=== PATIENT | female | born 1950 | race Caucasian/White ===

== ENCOUNTER 2016-08-07 10:24 | Inpatient (IN) | payer MEDICARE, MEDICAID ==
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
[2016-08-07 11:45] LABS: Urine Bacteria Absent (Absent); Urine Bilirubin Negative (Negative); Urine Glucose Negative (Negative); Urine Nitrite Negative (Negative)
[2016-08-07 11:51] LABS: Hematocrit 42 % (35-47); Hemoglobin 13.7 g/dl (12.0-16.0); Mean Corpuscular HGB Conc 33 g/dl (31-36); Mean Corpuscular Hemoglobin 30 pg (27-31); Mean Corpuscular Volume 92 fL (80-97); Mean Platelet Volume 7 um3 (7.4-10.4); Red Blood Count 4.51 10^6/ul (4.0-5.4); Red Cell Distribution Width 14 % (10.5-15); White Blood Count 5.2 10^3/ul (3.5-10.8)
[2016-08-07 11:56] LABS: Benzodiazepine Urine Screen None Detected (None Detect)
[2016-08-07 12:03] LABS: ALT 13 U/L (7-52); AST 16 U/L (13-39); Albumin 4.1 g/dL (3.2-5.2); Alkaline Phosphatase 65 U/L (34-104); Anion Gap 7 mmol/L (2-11); BUN/Creatinine Ratio 22.6 (8-20); Blood Urea Nitrogen 19 mg/dL (6-24); CO2 Carbon Dioxide 28 mmol/L (22-32); Calcium 9.7 mg/dL (8.6-10.3); Chloride 102 mmol/L (101-111); EGFR African American 87.5 (>60); Glucose 97 mg/dL (70-100); Potassium 3.9 mmol/L (3.5-5.0); Sodium 137 mmol/L (133-145); Total Protein 7.1 g/dL (6.4-8.9)
[2016-08-07 12:26] LABS: Acetaminophen < 15 mcg/mL; Alcohol < 10 mg/dL (<10); Salicylate < 2.50 mg/dL (<30)
[2016-08-07] MEDS ORDERED: LORazepam TAB(*) 1 MG PO ONE (12:29)
[2016-08-07 12:36] LABS: TSH (Thyroid Stimulating Horm) 0.89 mcIU/mL (0.34-5.60)
[2016-08-07] MEDS: Mirtazapine TAB* 15 MG PO SCH (21:17)
[2016-08-07] MEDS: LORazepam TAB(*) 0.5 MG PO PRN (21:17)
[2016-08-07] MEDS: Docusate CAP* 100 MG PO SCH (21:17)
[2016-08-07] MEDS: Topiramate TAB(*) 25 MG PO SCH (21:18)
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
[2016-08-08] MEDS: Levothyroxine TAB* 112 MCG TAB PO SCH (06:19)
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
[2016-08-08] MEDS: Lisinopril TAB* 5 MG PO SCH (09:24)
[2016-08-08] MEDS: Docusate CAP* 100 MG PO SCH ×2 (09:24→22:41)
[2016-08-08] MEDS: PARoxetine HCL TAB* 10 MG PO SCH (09:24)
[2016-08-08] MEDS: lamoTRIgine TAB(*) 100 MG PO SCH (09:24)
--- NOTE | 2016-08-08 11:07 | PN ---
Progress Note - Progress Note Note: S: 65 y.o. single white female with PTSD who presented to ER yesterday with agitation and behavioral disturbances in her halfway in [place], [place]. Patient has been working on moving into a [facility] in [place], [place] to be closer to family. She was accepted for transfer to the [facility], however, they are now informing us that today is a [facility] and they have insufficient staffing to take her until tomorrow (08/09). Patient has shown no evidence of agitation so far today, although she is child-like and poorly organized. O: patient clean, well groomed, child like vocabulary, calm and cooperative. Requesting transfer to [facility]. Denies SI or HI. A/P: PTSD: will move to ER-Flex space and await [facility] [place] [place] [facility] (08/09)
[2016-08-08] MEDS: Topiramate TAB(*) 25 MG PO SCH (22:41)
[2016-08-08] MEDS: Mirtazapine TAB* 15 MG PO SCH (22:41)
[2016-08-08] MEDS: LORazepam TAB(*) 0.5 MG PO PRN (22:41)
[2016-08-09] MEDS: Levothyroxine TAB* 112 MCG TAB PO SCH (09:56)
[2016-08-09] MEDS: Docusate CAP* 100 MG PO SCH ×2 (10:50→22:12)
[2016-08-09] MEDS: lamoTRIgine TAB(*) 100 MG PO SCH (10:50)
[2016-08-09] MEDS: Lisinopril TAB* 5 MG PO SCH (10:50)
[2016-08-09] MEDS: PARoxetine HCL TAB* 10 MG PO SCH (10:51)
--- NOTE | 2016-08-09 15:18 | PN ---
ED Flex Patient Progress Note Subjective: This is a 65 year-old F who is pending transfer to another psychiatric facility secondary to needing a different facility to be discharge to as her previous facility will not take her back. Pt offers no complaints at this time. She has been drinking and eating. She also stays she is sleeping okay. Objective: Vitals: Most recent vital signs documented below. General NAD, Alert and oriented x3. Heart: rrr at 70 bpm Lungs: CTA or with rales, rhonchi, wheezing Abdomen: normal active BS, nontender, soft Laboratory: Current laboratory results documented below. Assessment: agitation Plan: Pending psychiatric to transfer to a different facility, will follow up daily until transfer occurs. Vital Signs Temp Pulse Resp BP Pulse Ox 98.5 F 79 18 138/72 94 08/08/16 11:12 08/08/16 11:12 08/08/16 22:41 08/08/16 11:12 08/08/16 11:12 Lab Results - Entire Visit 08/07/16 08/07/16 08/07/16 11:39 11:39 10:50 WBC 5.2 RBC 4.51 Hgb 13.7 Hct 42 MCV 92 MCH 30 MCHC 33 RDW 14 Plt Count 223 MPV 7 L Neut % (Auto) 66.4 Lymph % (Auto) 25.5 [place] % (Auto) 6.6 Eos % (Auto) 1.0 Baso % (Auto) 0.5 Absolute Neuts (auto) 3.4 Absolute Lymphs (auto) 1.3 Absolute Monos (auto) 0.3 Absolute Eos (auto) 0.1 Absolute Basos (auto) 0 Absolute Nucleated RBC 0 Nucleated RBC % 0 Sodium 137 Potassium 3.9 Chloride 102 Carbon Dioxide 28 Anion Gap 7 BUN 19 Creatinine 0.84 Est GFR ( Amer) 87.5 Est GFR (Non-Af Amer) 68.0 BUN/Creatinine Ratio 22.6 H Glucose 97 Calcium 9.7 Total Bilirubin 0.50 AST 16 ALT 13 Alkaline Phosphatase 65 Total Protein 7.1 Albumin 4.1 Globulin 3.0 Albumin/Globulin Ratio 1.4 TSH 0.89 Urine Color Urine Appearance Urine pH Ur Specific [place] Urine Protein Urine Ketones Urine Blood Urine Nitrate Urine Bilirubin Urine Urobilinogen Ur Leukocyte Esterase Urine WBC (Auto) Urine RBC (Auto) Ur Squamous Epith Cells Ur Renal Epithelial Cell Urine Bacteria Urine Glucose Salicylates < 2.50 Urine Opiates Screen None detected Acetaminophen < 15 Ur Barbiturates Screen None detected Ur Phencyclidine Scrn None detected Ur Amphetamines Screen None detected U Benzodiazepines Scrn None detected Urine Cocaine Screen None detected U Cannabinoids Screen None detected Serum Alcohol < 10 08/07/16 10:30 WBC RBC Hgb Hct MCV MCH MCHC RDW Plt Count MPV Neut % (Auto) Lymph % (Auto) [place] % (Auto) Eos % (Auto) Baso % (Auto) Absolute Neuts (auto) Absolute Lymphs (auto) Absolute Monos (auto) Absolute Eos (auto) Absolute Basos (auto) Absolute Nucleated RBC Nucleated RBC % Sodium Potassium Chloride Carbon Dioxide Anion Gap BUN Creatinine Est GFR ( Amer) Est GFR (Non-Af Amer) BUN/Creatinine Ratio Glucose Calcium Total Bilirubin AST ALT Alkaline Phosphatase Total Protein Albumin Globulin Albumin/Globulin Ratio TSH Urine Color Yellow Urine Appearance Clear Urine pH 6.0 Ur Specific [place] 1.018 Urine Protein Negative Urine Ketones Negative Urine Blood Negative Urine Nitrate Negative Urine Bilirubin Negative Urine Urobilinogen Negative Ur Leukocyte Esterase 2+ H Urine WBC (Auto) 1+(6-10/hpf) H Urine RBC (Auto) Trace(0-2/hpf) Ur Squamous Epith Cells Present H Ur Renal Epithelial Cell Present H Urine Bacteria Absent Urine Glucose Negative Salicylates Urine Opiates Screen Acetaminophen Ur Barbiturates Screen Ur Phencyclidine Scrn Ur Amphetamines Screen U Benzodiazepines Scrn Urine Cocaine Screen U Cannabinoids Screen Serum Alcohol
--- NOTE | 2016-08-09 16:10 | PN ---
ED Flex Patient Progress Note Subjective: This is a 65 year-old F who is pending transfer to another psychiatric facility. Pt offers no complaints at this time. Objective: The patient is calm and cooperative. Assessment: Bipolar DO by hx Plan: Patient is a service-connected who awaits transfer to an accepting [facility]. Vital Signs Temp Pulse Resp BP Pulse Ox 98.5 F 79 18 138/72 94 08/08/16 11:12 08/08/16 11:12 08/08/16 22:41 08/08/16 11:12 08/08/16 11:12 Lab Results - Entire Visit 08/07/16 08/07/16 08/07/16 11:39 11:39 10:50 WBC 5.2 RBC 4.51 Hgb 13.7 Hct 42 MCV 92 MCH 30 MCHC 33 RDW 14 Plt Count 223 MPV 7 L Neut % (Auto) 66.4 Lymph % (Auto) 25.5 [place] % (Auto) 6.6 Eos % (Auto) 1.0 Baso % (Auto) 0.5 Absolute Neuts (auto) 3.4 Absolute Lymphs (auto) 1.3 Absolute Monos (auto) 0.3 Absolute Eos (auto) 0.1 Absolute Basos (auto) 0 Absolute Nucleated RBC 0 Nucleated RBC % 0 Sodium 137 Potassium 3.9 Chloride 102 Carbon Dioxide 28 Anion Gap 7 BUN 19 Creatinine 0.84 Est GFR ( Amer) 87.5 Est GFR (Non-Af Amer) 68.0 BUN/Creatinine Ratio 22.6 H Glucose 97 Calcium 9.7 Total Bilirubin 0.50 AST 16 ALT 13 Alkaline Phosphatase 65 Total Protein 7.1 Albumin 4.1 Globulin 3.0 Albumin/Globulin Ratio 1.4 TSH 0.89 Urine Color Urine Appearance Urine pH Ur Specific [place] Urine Protein Urine Ketones Urine Blood Urine Nitrate Urine Bilirubin Urine Urobilinogen Ur Leukocyte Esterase Urine WBC (Auto) Urine RBC (Auto) Ur Squamous Epith Cells Ur Renal Epithelial Cell Urine Bacteria Urine Glucose Salicylates < 2.50 Urine Opiates Screen None detected Acetaminophen < 15 Ur Barbiturates Screen None detected Ur Phencyclidine Scrn None detected Ur Amphetamines Screen None detected U Benzodiazepines Scrn None detected Urine Cocaine Screen None detected U Cannabinoids Screen None detected Serum Alcohol < 10 08/07/16 10:30 WBC RBC Hgb Hct MCV MCH MCHC RDW Plt Count MPV Neut % (Auto) Lymph % (Auto) [place] % (Auto) Eos % (Auto) Baso % (Auto) Absolute Neuts (auto) Absolute Lymphs (auto) Absolute Monos (auto) Absolute Eos (auto) Absolute Basos (auto) Absolute Nucleated RBC Nucleated RBC % Sodium Potassium Chloride Carbon Dioxide Anion Gap BUN Creatinine Est GFR ( Amer) Est GFR (Non-Af Amer) BUN/Creatinine Ratio Glucose Calcium Total Bilirubin AST ALT Alkaline Phosphatase Total Protein Albumin Globulin Albumin/Globulin Ratio TSH Urine Color Yellow Urine Appearance Clear Urine pH 6.0 Ur Specific [place] 1.018 Urine Protein Negative Urine Ketones Negative Urine Blood Negative Urine Nitrate Negative Urine Bilirubin Negative Urine Urobilinogen Negative Ur Leukocyte Esterase 2+ H Urine WBC (Auto) 1+(6-10/hpf) H Urine RBC (Auto) Trace(0-2/hpf) Ur Squamous Epith Cells Present H Ur Renal Epithelial Cell Present H Urine Bacteria Absent Urine Glucose Negative Salicylates Urine Opiates Screen Acetaminophen Ur Barbiturates Screen Ur Phencyclidine Scrn Ur Amphetamines Screen U Benzodiazepines Scrn Urine Cocaine Screen U Cannabinoids Screen Serum Alcohol
[2016-08-09] MEDS: Mirtazapine TAB* 15 MG PO SCH (22:12)
[2016-08-09] MEDS: Topiramate TAB(*) 25 MG PO SCH (22:12)
[2016-08-10] MEDS: Docusate CAP* 100 MG PO SCH ×2 (09:42→21:20)
[2016-08-10] MEDS: PARoxetine HCL TAB* 10 MG PO SCH (09:43)
[2016-08-10] MEDS: Lisinopril TAB* 5 MG PO SCH (09:43)
[2016-08-10] MEDS: Levothyroxine TAB* 112 MCG TAB PO SCH (09:55)
[2016-08-10] MEDS: lamoTRIgine TAB(*) 100 MG PO SCH (09:56)
--- NOTE | 2016-08-10 16:32 | PN ---
ED Flex Patient Progress Note Subjective: This is a 65 year-old F who is pending transfer to any of the available local/ regional [place] medical centers due to agitated behavior. She remains calm and cooperative and denies SI or HI. Objective: Calm and cooperative. Child-like. In behavioral control. Assessment: Bipolar DO, NOS Plan: Pending transfer to [place] but facilities in [facility] and [place] lack bed-space. Will re-evaluate tomorrow for continued need for hospitalization. Vital Signs Temp Pulse Resp BP Pulse Ox 98.4 F 80 16 108/61 95 08/10/16 08:57 08/10/16 08:57 08/10/16 08:57 08/10/16 08:57 08/10/16 08:57 Lab Results - Entire Visit 08/07/16 08/07/16 08/07/16 11:39 11:39 11:39 WBC 5.2 RBC 4.51 Hgb 13.7 Hct 42 MCV 92 MCH 30 MCHC 33 RDW 14 Plt Count 223 MPV 7 L Neut % (Auto) 66.4 Lymph % (Auto) 25.5 [place] % (Auto) 6.6 Eos % (Auto) 1.0 Baso % (Auto) 0.5 Absolute Neuts (auto) 3.4 Absolute Lymphs (auto) 1.3 Absolute Monos (auto) 0.3 Absolute Eos (auto) 0.1 Absolute Basos (auto) 0 Absolute Nucleated RBC 0 Nucleated RBC % 0 Sodium 137 Potassium 3.9 Chloride 102 Carbon Dioxide 28 Anion Gap 7 BUN 19 Creatinine 0.84 Est GFR ( Amer) 87.5 Est GFR (Non-Af Amer) 68.0 BUN/Creatinine Ratio 22.6 H Glucose 97 Calcium 9.7 Total Bilirubin 0.50 AST 16 ALT 13 Alkaline Phosphatase 65 Total Protein 7.1 Albumin 4.1 Globulin 3.0 Albumin/Globulin Ratio 1.4 TSH 0.89 Urine Color Urine Appearance Urine pH Ur Specific [place] Urine Protein Urine Ketones Urine Blood Urine Nitrate Urine Bilirubin Urine Urobilinogen Ur Leukocyte Esterase Urine WBC (Auto) Urine RBC (Auto) Ur Squamous Epith Cells Ur Renal Epithelial Cell Urine Bacteria Urine Glucose Salicylates < 2.50 Urine Opiates Screen Acetaminophen < 15 Ur Barbiturates Screen Lamotrigine 4.1 Ur Phencyclidine Scrn Ur Amphetamines Screen U Benzodiazepines Scrn Urine Cocaine Screen U Cannabinoids Screen Serum Alcohol < 10 01/01/17 01/01/17 10:50 10:30 WBC RBC Hgb Hct MCV MCH MCHC RDW Plt Count MPV Neut % (Auto) Lymph % (Auto) [place] % (Auto) Eos % (Auto) Baso % (Auto) Absolute Neuts (auto) Absolute Lymphs (auto) Absolute Monos (auto) Absolute Eos (auto) Absolute Basos (auto) Absolute Nucleated RBC Nucleated RBC % Sodium Potassium Chloride Carbon Dioxide Anion Gap BUN Creatinine Est GFR ( Amer) Est GFR (Non-Af Amer) BUN/Creatinine Ratio Glucose Calcium Total Bilirubin AST ALT Alkaline Phosphatase Total Protein Albumin Globulin Albumin/Globulin Ratio TSH Urine Color Yellow Urine Appearance Clear Urine pH 6.0 Ur Specific [place] 1.018 Urine Protein Negative Urine Ketones Negative Urine Blood Negative Urine Nitrate Negative Urine Bilirubin Negative Urine Urobilinogen Negative Ur Leukocyte Esterase 2+ H Urine WBC (Auto) 1+(6-10/hpf) H Urine RBC (Auto) Trace(0-2/hpf) Ur Squamous Epith Cells Present H Ur Renal Epithelial Cell Present H Urine Bacteria Absent Urine Glucose Negative Salicylates Urine Opiates Screen None detected Acetaminophen Ur Barbiturates Screen None detected Lamotrigine Ur Phencyclidine Scrn None detected Ur Amphetamines Screen None detected U Benzodiazepines Scrn None detected Urine Cocaine Screen None detected U Cannabinoids Screen None detected Serum Alcohol
--- NOTE | 2016-08-10 17:21 | PN ---
ED Flex Patient Progress Note Subjective: This is a 65 year-old F who is pending transfer [facility] secondary to [facility]. Pt offers no complaints at this time. She is calm and cooperative. Currently sitting and eating dinner. She states she slept well last night. Objective: Vitals: Most recent vital signs documented below. General NAD, Alert and oriented x3. Heart: rrr at 70 bpm Lungs: CTA or with rales, rhonchi, wheezing Abdomen: nontender, normoactive bowel sounds, soft Extremities: move all extremities Laboratory: Current laboratory results documented below. Assessment: agitation Plan: Pending psychiatric to find a [facility] to [facility], will follow up daily. Vital Signs Temp Pulse Resp BP Pulse Ox 98.4 F 80 16 108/61 95 08/10/16 08:57 08/10/16 08:57 08/10/16 08:57 08/10/16 08:57 08/10/16 08:57 Lab Results - Entire Visit 08/07/16 08/07/16 08/07/16 11:39 11:39 11:39 WBC 5.2 RBC 4.51 Hgb 13.7 Hct 42 MCV 92 MCH 30 MCHC 33 RDW 14 Plt Count 223 MPV 7 L Neut % (Auto) 66.4 Lymph % (Auto) 25.5 Summers % (Auto) 6.6 Eos % (Auto) 1.0 Baso % (Auto) 0.5 Absolute Neuts (auto) 3.4 Absolute Lymphs (auto) 1.3 Absolute Monos (auto) 0.3 Absolute Eos (auto) 0.1 Absolute Basos (auto) 0 Absolute Nucleated RBC 0 Nucleated RBC % 0 Sodium 137 Potassium 3.9 Chloride 102 Carbon Dioxide 28 Anion Gap 7 BUN 19 Creatinine 0.84 Est GFR ( Amer) 87.5 Est GFR (Non-Af Amer) 68.0 BUN/Creatinine Ratio 22.6 H Glucose 97 Calcium 9.7 Total Bilirubin 0.50 AST 16 ALT 13 Alkaline Phosphatase 65 Total Protein 7.1 Albumin 4.1 Globulin 3.0 Albumin/Globulin Ratio 1.4 TSH 0.89 Urine Color Urine Appearance Urine pH Ur Specific Montfort Urine Protein Urine Ketones Urine Blood Urine Nitrate Urine Bilirubin Urine Urobilinogen Ur Leukocyte Esterase Urine WBC (Auto) Urine RBC (Auto) Ur Squamous Epith Cells Ur Renal Epithelial Cell Urine Bacteria Urine Glucose Salicylates < 2.50 Urine Opiates Screen Acetaminophen < 15 Ur Barbiturates Screen Lamotrigine 4.1 Ur Phencyclidine Scrn Ur Amphetamines Screen U Benzodiazepines Scrn Urine Cocaine Screen U Cannabinoids Screen Serum Alcohol < 10 08/07/16 08/07/16 10:50 10:30 WBC RBC Hgb Hct MCV MCH MCHC RDW Plt Count MPV Neut % (Auto) Lymph % (Auto) Summers % (Auto) Eos % (Auto) Baso % (Auto) Absolute Neuts (auto) Absolute Lymphs (auto) Absolute Monos (auto) Absolute Eos (auto) Absolute Basos (auto) Absolute Nucleated RBC Nucleated RBC % Sodium Potassium Chloride Carbon Dioxide Anion Gap BUN Creatinine Est GFR ( Amer) Est GFR (Non-Af Amer) BUN/Creatinine Ratio Glucose Calcium Total Bilirubin AST ALT Alkaline Phosphatase Total Protein Albumin Globulin Albumin/Globulin Ratio TSH Urine Color Yellow Urine Appearance Clear Urine pH 6.0 Ur Specific Montfort 1.018 Urine Protein Negative Urine Ketones Negative Urine Blood Negative Urine Nitrate Negative Urine Bilirubin Negative Urine Urobilinogen Negative Ur Leukocyte Esterase 2+ H Urine WBC (Auto) 1+(6-10/hpf) H Urine RBC (Auto) Trace(0-2/hpf) Ur Squamous Epith Cells Present H Ur Renal Epithelial Cell Present H Urine Bacteria Absent Urine Glucose Negative Salicylates Urine Opiates Screen None detected Acetaminophen Ur Barbiturates Screen None detected Lamotrigine Ur Phencyclidine Scrn None detected Ur Amphetamines Screen None detected U Benzodiazepines Scrn None detected Urine Cocaine Screen None detected U Cannabinoids Screen None detected Serum Alcohol
[2016-08-10] MEDS: Mirtazapine TAB* 15 MG PO SCH (21:20)
[2016-08-10] MEDS: Topiramate TAB(*) 25 MG PO SCH (21:20)
--- NOTE | 2016-08-11 15:12 | PN ---
ED Flex Patient Progress Note Subjective: This is a 65 year-old F who is pending admission to [facility] secondary to agitation. Pt offers no complaints at this time. She has been eating and drinking okay. She states she took a nap today. Objective: Vitals: Most recent vital signs documented below. General NAD, Alert and oriented x3. Heart: rrr at 70 bpm Lungs: CTA or with rales, rhonchi, wheezing Abdomen: soft nontender, normoactive bowel sounds Laboratory: Current laboratory results documented below. Assessment: Agitation Bipolar Plan: Pending psychiatric to admit today. Disposition: Admit Condition: stable Vital Signs Temp Pulse Resp BP Pulse Ox 98.2 F 78 16 97/58 96 08/10/16 18:21 08/10/16 18:21 08/10/16 18:21 08/10/16 18:21 08/10/16 18:21 Lab Results - Entire Visit 08/07/16 08/07/16 08/07/16 11:39 11:39 11:39 WBC 5.2 RBC 4.51 Hgb 13.7 Hct 42 MCV 92 MCH 30 MCHC 33 RDW 14 Plt Count 223 MPV 7 L Neut % (Auto) 66.4 Lymph % (Auto) 25.5 Anderson % (Auto) 6.6 Eos % (Auto) 1.0 Baso % (Auto) 0.5 Absolute Neuts (auto) 3.4 Absolute Lymphs (auto) 1.3 Absolute Monos (auto) 0.3 Absolute Eos (auto) 0.1 Absolute Basos (auto) 0 Absolute Nucleated RBC 0 Nucleated RBC % 0 Sodium 137 Potassium 3.9 Chloride 102 Carbon Dioxide 28 Anion Gap 7 BUN 19 Creatinine 0.84 Est GFR ( Amer) 87.5 Est GFR (Non-Af Amer) 68.0 BUN/Creatinine Ratio 22.6 H Glucose 97 Calcium 9.7 Total Bilirubin 0.50 AST 16 ALT 13 Alkaline Phosphatase 65 Total Protein 7.1 Albumin 4.1 Globulin 3.0 Albumin/Globulin Ratio 1.4 TSH 0.89 Urine Color Urine Appearance Urine pH Ur Specific Falkner Urine Protein Urine Ketones Urine Blood Urine Nitrate Urine Bilirubin Urine Urobilinogen Ur Leukocyte Esterase Urine WBC (Auto) Urine RBC (Auto) Ur Squamous Epith Cells Ur Renal Epithelial Cell Urine Bacteria Urine Glucose Salicylates < 2.50 Urine Opiates Screen Acetaminophen < 15 Ur Barbiturates Screen Lamotrigine 4.1 Ur Phencyclidine Scrn Ur Amphetamines Screen U Benzodiazepines Scrn Urine Cocaine Screen U Cannabinoids Screen Serum Alcohol < 10 08/07/16 08/07/16 10:50 10:30 WBC RBC Hgb Hct MCV MCH MCHC RDW Plt Count MPV Neut % (Auto) Lymph % (Auto) Anderson % (Auto) Eos % (Auto) Baso % (Auto) Absolute Neuts (auto) Absolute Lymphs (auto) Absolute Monos (auto) Absolute Eos (auto) Absolute Basos (auto) Absolute Nucleated RBC Nucleated RBC % Sodium Potassium Chloride Carbon Dioxide Anion Gap BUN Creatinine Est GFR ( Amer) Est GFR (Non-Af Amer) BUN/Creatinine Ratio Glucose Calcium Total Bilirubin AST ALT Alkaline Phosphatase Total Protein Albumin Globulin Albumin/Globulin Ratio TSH Urine Color Yellow Urine Appearance Clear Urine pH 6.0 Ur Specific Falkner 1.018 Urine Protein Negative Urine Ketones Negative Urine Blood Negative Urine Nitrate Negative Urine Bilirubin Negative Urine Urobilinogen Negative Ur Leukocyte Esterase 2+ H Urine WBC (Auto) 1+(6-10/hpf) H Urine RBC (Auto) Trace(0-2/hpf) Ur Squamous Epith Cells Present H Ur Renal Epithelial Cell Present H Urine Bacteria Absent Urine Glucose Negative Salicylates Urine Opiates Screen None detected Acetaminophen Ur Barbiturates Screen None detected Lamotrigine Ur Phencyclidine Scrn None detected Ur Amphetamines Screen None detected U Benzodiazepines Scrn None detected Urine Cocaine Screen None detected U Cannabinoids Screen None detected Serum Alcohol
[2016-08-11] MEDS: Levothyroxine TAB* 112 MCG TAB PO SCH (17:04)
[2016-08-11] MEDS: Docusate CAP* 100 MG PO SCH ×2 (17:09→20:56)
[2016-08-11] MEDS: Lisinopril TAB* 5 MG PO SCH (17:10)
[2016-08-11] MEDS: lamoTRIgine TAB(*) 100 MG PO SCH (17:10)
[2016-08-11] MEDS: PARoxetine HCL TAB* 10 MG PO SCH (17:10)
[2016-08-11] MEDS: Mirtazapine TAB* 15 MG PO SCH (20:55)
[2016-08-11] MEDS: Topiramate TAB(*) 25 MG PO SCH (20:55)
[2016-08-12] MEDS: Levothyroxine TAB* 112 MCG TAB PO SCH ×2 (06:14→08:54)
[2016-08-12] MEDS: Docusate CAP* 100 MG PO SCH ×2 (08:54→21:28)
[2016-08-12] MEDS: Lisinopril TAB* 5 MG PO SCH (08:55)
[2016-08-12] MEDS: lamoTRIgine TAB(*) 100 MG PO SCH (08:55)
[2016-08-12] MEDS: PARoxetine HCL TAB* 10 MG PO SCH (08:56)
[2016-08-12] MEDS: Vitamin THERAPEUTIC TAB PO SCH (08:56)
[2016-08-12] MEDS ORDERED: Ibuprofen TAB* 600 MG PO PRN (16:43)
[2016-08-12] MEDS ORDERED: Triamcinolone 0.025% OINT * 15 GM TUBE TOPICAL PRN (16:43)
[2016-08-12] MEDS ORDERED: Nicotine Inhaler* 10 MG AMP INH PRN (16:46)
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
[2016-08-12] MEDS: Topiramate TAB(*) 25 MG PO SCH (21:28)
[2016-08-12] MEDS: Calcium/Vitamin D TAB 250/125* TAB PO SCH (21:28)
[2016-08-12] MEDS: Mirtazapine TAB* 15 MG PO SCH (21:29)
[2016-08-13] MEDS: Vitamin THERAPEUTIC TAB PO SCH (08:34)
[2016-08-13] MEDS: Lisinopril TAB* 5 MG PO SCH (08:34)
[2016-08-13] MEDS: PARoxetine HCL TAB* 10 MG PO SCH (08:35)
[2016-08-13] MEDS: Folic Acid TAB* 1 MG PO SCH (08:35)
[2016-08-13] MEDS: Docusate CAP* 100 MG PO SCH ×2 (08:35→21:19)
[2016-08-13] MEDS: Calcium/Vitamin D TAB 250/125* TAB PO SCH ×2 (08:35→21:19)
[2016-08-13] MEDS: lamoTRIgine TAB(*) 100 MG PO SCH (08:35)
[2016-08-13] MEDS: Levothyroxine TAB* 112 MCG TAB PO SCH (08:36)
--- NOTE | 2016-08-13 14:45 | PN ---
Subjective - Subjective Service Type: 40000 Hosp care 15 min low complexity Subjective: I reviewed Dr Lindsay's H&P and staff notes since Monday afternoon. She expressed a desire to move closer to [place]. She slept 7+ hrs last night. Pt found in bed. She attempted to briefly summarize reasons for hospitalization (essentially mentioning conflict with neighbors and calling the Crisis Line repeatedly). She is unaware of any specific treatment goals for this hospitalization other than transferring her to [facility]. Mood is "up and down " and notes mild depression since after lunch. She denies any anxiety. She notes constipation but denies other physical complaints. She slept "okay" last night. She reports stable appetite. She denies any medication side effects. She denies SI or HI. Objective - Appearance Appearance: Other - uses cane. Grooming: Fairly Well Kept - Behavior Psychomotor Activities: Abnormal-Increased - exaggerated facial expressions and gesticulations. Child-like mannerisms. Exaggerated tongue movements. Often covers face with hands. Exhibits Abnormal Movement: Yes - Attitude and Relatedness Attitude and Relatedness: Cooperative Eye Contact: Fair - Speech Quality: Pressured Latencies: Normal Quantity: Appropriate - Mood Patient's Decription of Mood: "up and down" - Affect Observed Affect: Non-labile Affect Consistent with: Euthymia - Thought Process Patient's Thought Process: Coherent, Impoverished Thought Content: No Passive Wish, No Suicidal Planning, No Homicidal Ideation, No Paranoid Ideation - Sensorium Experiencing Hallucinations: No, Sensorium is Clear - Level of Consciousness Level of Consciousness: Alert - Impulse Control Impulse Control: Intact - Insight and Judgement Insight and Judgement: Fair - Additional Observations Comments: Vital Signs 08/13/16 07:52 Temperature 98.4 F Pulse Rate 71 Respiratory 16 Rate Blood Pressure 120/69 (mmHg) O2 Sat by Pulse 98 Oximetry Assessment - Assessment Merits Inpatient Hospitalization: For Stabilization, Diagnosis Determination, To Initiate Treatment, For Ongoing Evaluation, Consolidate Improvements, For Discharge Planning, Pending Safe DC Plan Inpatient DSM-IV Dx: Mood D/o NOS Clinical Impression: 65yo female [place] with a hx of bipolar disorder and past psychiatric hospitalizations admitted for mood lability escalating towards violent threats. Plan - Plan Treatment Plan: Name: HALEIGH SANCHEZ Birthdate: 1950 [id number] - to continue current medication regime. - to get collateral from Simeon Zapata ([employer]) and psychiatrist at the [facility] Medications: Current Medications Acetaminophen (Tylenol Tab*) 650 mg PO Q4H PRN PRN Reason: PAIN or TEMP > 101 F Calcium/Vitamin D (Oscal D Tab 250/125*) 2 tab PO BID [facility] Last Admin: 08/13/16 08:35 Dose: 2 tab Docusate Sodium (Colace Cap*) 100 mg PO BID [facility] Last Admin: 08/13/16 08:35 Dose: 100 mg Folic Acid (Folvite Tab*) 1 mg PO DAILY [facility] Last Admin: 08/13/16 08:35 Dose: 1 mg Ibuprofen (Motrin Tab*) 600 mg PO Q6H PRN PRN Reason: PAIN Lamotrigine (Lamictal Tab(*)) 300 mg PO DAILY [facility] Last Admin: 08/13/16 08:35 Dose: 300 mg Levothyroxine Sodium (Synthroid Tab*) 112 mcg PO DAILY@0600 [facility] Last Admin: 08/13/16 08:36 Dose: 112 mcg Lisinopril (Prinivil Tab*) 5 mg PO DAILY [facility] Last Admin: 08/13/16 08:34 Dose: 5 mg Lorazepam (Ativan Tab(*)) 0.5 mg PO BID PRN PRN Reason: ANXIETY Last Admin: 08/08/16 22:41 Dose: 0.5 mg Mirtazapine (Remeron Tab*) 30 mg PO BEDTIME [facility] Last Admin: 08/12/16 21:29 Dose: 30 mg Multivitamins (Theragran Tab*) 1 tab PO DAILY [facility] Last Admin: 08/13/16 08:34 Dose: 1 tab Nicotine (Nicotine Inhaler*) 10 mg INH Q2H PRN PRN Reason: CRAVING Paroxetine HCl (Paxil Tab*) 10 mg PO DAILY [facility] Last Admin: 08/13/16 08:35 Dose: 10 mg Psyllium Hydrophilic Mucilloid (Metamucil Porter*) 1 pkt PO DAILY PRN PRN Reason: CONSTIPATION Topiramate (Topamax(*)) 25 mg PO BEDTIME [facility] Last Admin: 08/12/16 21:28 Dose: 25 mg Triamcinolone Acetonide (Triamcinolone 0.025% Oint *) 1 applic TOPICAL DAILY PRN PRN Reason: ITCHING
[2016-08-13] MEDS: Mirtazapine TAB* 15 MG PO SCH (21:19)
[2016-08-13] MEDS: Topiramate TAB(*) 25 MG PO SCH (21:20)
[2016-08-14] MEDS: Levothyroxine TAB* 112 MCG TAB PO SCH (06:30)
[2016-08-14] MEDS: Psyllium PAK PO PRN (09:10)
[2016-08-14] MEDS: Docusate CAP* 100 MG PO SCH ×2 (09:10→21:22)
[2016-08-14] MEDS: Vitamin THERAPEUTIC TAB PO SCH (09:10)
[2016-08-14] MEDS: lamoTRIgine TAB(*) 100 MG PO SCH (09:10)
[2016-08-14] MEDS: Lisinopril TAB* 5 MG PO SCH (09:11)
[2016-08-14] MEDS: PARoxetine HCL TAB* 10 MG PO SCH (09:11)
[2016-08-14] MEDS: Folic Acid TAB* 1 MG PO SCH (09:11)
[2016-08-14] MEDS: Calcium/Vitamin D TAB 250/125* TAB PO SCH (09:11)
[2016-08-14] MEDS: Mirtazapine TAB* 15 MG PO SCH (21:21)
[2016-08-14] MEDS: Topiramate TAB(*) 25 MG PO SCH (21:21)
[2016-08-15] MEDS: Calcium/Vitamin D TAB 250/125* TAB PO SCH ×3 (03:40→21:31)
[2016-08-15] MEDS: Levothyroxine TAB* 112 MCG TAB PO SCH (06:06)
[2016-08-15] MEDS: Docusate CAP* 100 MG PO SCH ×2 (08:44→21:31)
[2016-08-15] MEDS: lamoTRIgine TAB(*) 100 MG PO SCH (08:44)
[2016-08-15] MEDS: Folic Acid TAB* 1 MG PO SCH (08:44)
[2016-08-15] MEDS: Lisinopril TAB* 5 MG PO SCH (08:44)
[2016-08-15] MEDS: Vitamin THERAPEUTIC TAB PO SCH (08:45)
[2016-08-15] MEDS: Psyllium PAK PO PRN (08:45)
[2016-08-15] MEDS: PARoxetine HCL TAB* 10 MG PO SCH (08:45)
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
[2016-08-15] MEDS: Mirtazapine TAB* 15 MG PO SCH (21:31)
[2016-08-15] MEDS: Topiramate TAB(*) 25 MG PO SCH (21:32)
[2016-08-16] MEDS: Levothyroxine TAB* 112 MCG TAB PO SCH (05:09)
[2016-08-16] MEDS: Calcium/Vitamin D TAB 250/125* TAB PO SCH ×2 (09:04→20:41)
[2016-08-16] MEDS: lamoTRIgine TAB(*) 100 MG PO SCH (09:04)
[2016-08-16] MEDS: Docusate CAP* 100 MG PO SCH ×2 (09:05→20:41)
[2016-08-16] MEDS: Lisinopril TAB* 5 MG PO SCH (09:05)
[2016-08-16] MEDS: Vitamin THERAPEUTIC TAB PO SCH (09:05)
[2016-08-16] MEDS: Folic Acid TAB* 1 MG PO SCH (09:05)
[2016-08-16] MEDS: PARoxetine HCL TAB* 10 MG PO SCH (09:05)
--- NOTE | 2016-08-16 13:44 | PN ---
MHU: Group Therapy Note - Service Type Service Type: [id number] Group Psychotherapy - Cognitive Behavioral Group Therapy ( CBT):Patient was attentive and participatory in CBT programming this morning, and remained in good behavioral control. Patient expressed positive insights regarding relevant treatment interventions and goals.
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
[2016-08-16] MEDS: Mirtazapine TAB* 15 MG PO SCH (20:41)
[2016-08-16] MEDS: Topiramate TAB(*) 25 MG PO SCH (20:41)
[2016-08-17] MEDS: Levothyroxine TAB* 112 MCG TAB PO SCH (06:03)
[2016-08-17] MEDS: Calcium/Vitamin D TAB 250/125* TAB PO SCH ×2 (08:25→21:18)
[2016-08-17] MEDS: Docusate CAP* 100 MG PO SCH ×2 (08:25→21:18)
[2016-08-17] MEDS: lamoTRIgine TAB(*) 100 MG PO SCH (08:25)
[2016-08-17] MEDS: Folic Acid TAB* 1 MG PO SCH (08:25)
[2016-08-17] MEDS: Lisinopril TAB* 5 MG PO SCH (08:26)
[2016-08-17] MEDS: PARoxetine HCL TAB* 10 MG PO SCH (08:26)
[2016-08-17] MEDS: Vitamin THERAPEUTIC TAB PO SCH (08:26)
--- NOTE | 2016-08-17 11:49 | PN ---
MHU: Group Therapy Note - Service Type Service Type: [id number] Group Psychotherapy - Cognitive Behavioral Group Therapy ( CBT):Patient was attentive and participatory in CBT programming this morning, and remained in good behavioral control. Patient expressed positive insights regarding relevant treatment interventions and goals.
[2016-08-17] MEDS: Psyllium PAK PO PRN (16:56)
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
[2016-08-17] MEDS: Topiramate TAB(*) 25 MG PO SCH (21:19)
[2016-08-17] MEDS: Mirtazapine TAB* 15 MG PO SCH (21:19)
[2016-08-18] MEDS: Levothyroxine TAB* 112 MCG TAB PO SCH (06:03)
[2016-08-18] MEDS: Docusate CAP* 100 MG PO SCH ×2 (09:08→20:46)
[2016-08-18] MEDS: Calcium/Vitamin D TAB 250/125* TAB PO SCH ×2 (09:08→20:45)
[2016-08-18] MEDS: lamoTRIgine TAB(*) 100 MG PO SCH (09:08)
[2016-08-18] MEDS: Folic Acid TAB* 1 MG PO SCH (09:09)
[2016-08-18] MEDS: Lisinopril TAB* 5 MG PO SCH (09:09)
[2016-08-18] MEDS: Vitamin THERAPEUTIC TAB PO SCH (09:09)
[2016-08-18] MEDS: PARoxetine HCL TAB* 10 MG PO SCH (09:09)
[2016-08-18] MEDS: Psyllium PAK PO PRN (10:17)
--- NOTE | 2016-08-18 11:51 | PN ---
MHU: Group Therapy Note - Service Type Service Type: [id number] Group Psychotherapy - Cognitive Behavioral Group Therapy ( CBT):Patient was attentive and participatory in CBT programming this morning, and remained in good behavioral control. Patient expressed positive insights regarding relevant treatment interventions and goals.
[2016-08-18 11:56] LABS: Manual Entry Verification GRE0060; Rapid HIV INT CONT QC Line Present; Rapid HIV Kit Lot# F209011
[2016-08-18] MEDS ORDERED: PPD test dose* 5 TU/0.1 ML TEST (*USE PPD ORDER SET*) INTRADERM ONE (13:08)
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
[2016-08-18] MEDS: Mirtazapine TAB* 15 MG PO SCH (20:46)
[2016-08-18] MEDS: Topiramate TAB(*) 25 MG PO SCH (20:46)
[2016-08-19] MEDS: Levothyroxine TAB* 112 MCG TAB PO SCH (05:32)
[2016-08-19] MEDS: Folic Acid TAB* 1 MG PO SCH (09:15)
[2016-08-19] MEDS: Lisinopril TAB* 5 MG PO SCH (09:15)
[2016-08-19] MEDS: Docusate CAP* 100 MG PO SCH ×2 (09:15→20:50)
[2016-08-19] MEDS: Vitamin THERAPEUTIC TAB PO SCH (09:15)
[2016-08-19] MEDS: lamoTRIgine TAB(*) 100 MG PO SCH (09:15)
[2016-08-19] MEDS: PARoxetine HCL TAB* 10 MG PO SCH (09:15)
[2016-08-19] MEDS: Calcium/Vitamin D TAB 250/125* TAB PO SCH ×2 (09:16→20:49)
--- NOTE | 2016-08-19 14:03 | PN ---
Subjective - Subjective Service Type: 42174 Hosp care 15 min low complexity Subjective: The patient is found in her room, resting comfortably. She has no acute complaints and staff notes indicate that she has not had any behavioral disturbances on the unit. Objective - Appearance Appearance: Thin Framed Dysmorphic Features: No Hygiene: Normal Grooming: Fairly Well Kept - Behavior Psychomotor Activities: Normal Exhibits Abnormal Movement: No - Attitude and Relatedness Attitude and Relatedness: Cooperative Eye Contact: Fair - Speech Quality: Unpressured Latencies: Normal Quantity: Appropriate - Mood Patient's Decription of Mood: "Fine" - Affect Observed Affect: Expansive Affect Consistent with: Euthymia - Thought Process Patient's Thought Process: Coherent Thought Content: No Passive Wish, No Suicidal Planning, No Homicidal Ideation, No Paranoid Ideation - Sensorium Experiencing Hallucinations: No, Sensorium is Clear Type of Hallucinations: Visual: No, Auditory: No, Command: No - Level of Consciousness Level of Consciousness: Alert Orientation: Yes Intact, Yes Orientated to Time, Yes Orientated to Place, Yes Orientated to Person - Impulse Control Impulse Control: Tenuous - Insight and Judgement Insight and Judgement: Fair - Group Participation Particating in Group Activities: Yes - Medication Management Medication Management Adherence: Yes Assessment - Assessment Merits Inpatient Hospitalization: Consolidate Improvements, Pending Safe DC Plan Inpatient DSM-IV Dx: Mood D/o NOS Clinical Impression: 65 y.o. single white female with history of bipolar DO admitted due to agitated, violent behavior in her half-way and now awaiting placement outside the hospital. Plan - Plan Treatment Plan: Name: HALEIGH SANCHEZ Birthdate: 1950 [id number] The patient awaits placement. Nothing to do at this time. Continued Medication Management: Continue Outpt Medication Medications: Current Medications Acetaminophen (Tylenol Tab*) 650 mg PO Q4H PRN PRN Reason: PAIN or TEMP > 101 F Calcium/Vitamin D (Oscal D Tab 250/125*) 2 tab PO BID [facility] Last Admin: 08/19/16 09:16 Dose: 2 tab Docusate Sodium (Colace Cap*) 100 mg PO BID [facility] Last Admin: 08/19/16 09:15 Dose: 100 mg Folic Acid (Folvite Tab*) 1 mg PO DAILY [facility] Last Admin: 08/19/16 09:15 Dose: 1 mg Ibuprofen (Motrin Tab*) 600 mg PO Q6H PRN PRN Reason: PAIN Lamotrigine (Lamictal Tab(*)) 300 mg PO DAILY [facility] Last Admin: 08/19/16 09:15 Dose: 300 mg Levothyroxine Sodium (Synthroid Tab*) 112 mcg PO DAILY@0600 [facility] Last Admin: 08/19/16 05:32 Dose: 112 mcg Lisinopril (Prinivil Tab*) 5 mg PO DAILY [facility] Last Admin: 08/19/16 09:15 Dose: 5 mg Lorazepam (Ativan Tab(*)) 0.5 mg PO BID PRN PRN Reason: ANXIETY Last Admin: 08/08/16 22:41 Dose: 0.5 mg Mirtazapine (Remeron Tab*) 30 mg PO BEDTIME [facility] Last Admin: 08/18/16 20:46 Dose: 30 mg Multivitamins (Theragran Tab*) 1 tab PO DAILY [facility] Last Admin: 08/19/16 09:15 Dose: 1 tab Nicotine (Nicotine Inhaler*) 10 mg INH Q2H PRN PRN Reason: CRAVING Paroxetine HCl (Paxil Tab*) 10 mg PO DAILY [facility] Last Admin: 08/19/16 09:15 Dose: 10 mg Pharmacy Profile Note (Ppd Reading Note*) 1 note .SEE ORDER .PPD READING [facility] Stop: 08/21/16 23:59 Psyllium Hydrophilic Mucilloid (Metamucil Porter*) 1 pkt PO DAILY PRN PRN Reason: CONSTIPATION Last Admin: 08/18/16 10:17 Dose: 1 pkt Topiramate (Topamax(*)) 25 mg PO BEDTIME [facility] Last Admin: 08/18/16 20:46 Dose: 25 mg Triamcinolone Acetonide (Triamcinolone 0.025% Oint *) 1 applic TOPICAL DAILY PRN PRN Reason: ITCHING - Discharge Plan Discharge Plan: Inpatient Hospitalization
[2016-08-19] MEDS: Mirtazapine TAB* 15 MG PO SCH (20:50)
[2016-08-19] MEDS: Topiramate TAB(*) 25 MG PO SCH (20:50)
[2016-08-20] MEDS: Levothyroxine TAB* 112 MCG TAB PO SCH (06:17)
[2016-08-20] MEDS: Docusate CAP* 100 MG PO SCH ×2 (08:37→20:49)
[2016-08-20] MEDS: PARoxetine HCL TAB* 10 MG PO SCH (08:38)
[2016-08-20] MEDS: Calcium/Vitamin D TAB 250/125* TAB PO SCH ×2 (08:38→20:49)
[2016-08-20] MEDS: Lisinopril TAB* 5 MG PO SCH (08:38)
[2016-08-20] MEDS: lamoTRIgine TAB(*) 100 MG PO SCH (08:38)
[2016-08-20] MEDS: Vitamin THERAPEUTIC TAB PO SCH (08:38)
[2016-08-20] MEDS: Folic Acid TAB* 1 MG PO SCH (08:38)
[2016-08-20] MEDS: Psyllium PAK PO PRN (08:39)
[2016-08-20] MEDS ORDERED: PPD Reading NOTE* (*USE PPD ORDER SET*) SCH (13:09)
[2016-08-20] MEDS: Mirtazapine TAB* 15 MG PO SCH (20:49)
[2016-08-20] MEDS: Topiramate TAB(*) 25 MG PO SCH (20:50)
[2016-08-21] MEDS: Levothyroxine TAB* 112 MCG TAB PO SCH (07:42)
[2016-08-21] MEDS: Vitamin THERAPEUTIC TAB PO SCH (09:28)
[2016-08-21] MEDS: Calcium/Vitamin D TAB 250/125* TAB PO SCH ×2 (09:28→20:55)
[2016-08-21] MEDS: Folic Acid TAB* 1 MG PO SCH (09:28)
[2016-08-21] MEDS: PARoxetine HCL TAB* 10 MG PO SCH (09:29)
[2016-08-21] MEDS: Lisinopril TAB* 5 MG PO SCH (09:29)
[2016-08-21] MEDS: lamoTRIgine TAB(*) 100 MG PO SCH (09:29)
[2016-08-21] MEDS: Docusate CAP* 100 MG PO SCH ×2 (09:29→20:55)
[2016-08-21] MEDS: Psyllium PAK PO PRN (09:30)
[2016-08-21] MEDS: Acetaminophen TAB* 325 MG PO PRN (17:08)
[2016-08-21] MEDS: Topiramate TAB(*) 25 MG PO SCH (20:55)
[2016-08-21] MEDS: Mirtazapine TAB* 15 MG PO SCH (20:55)
[2016-08-22] MEDS: Levothyroxine TAB* 112 MCG TAB PO SCH (06:13)
--- NOTE | 2016-08-22 07:50 | PN ---
Subjective - Subjective Service Type: 90081 Hosp care 15 min low complexity Subjective: Haleigh was cheerful and gesticulated broadly. She denied distress or problems, and identified the only issue as need for ( and ambivalence about) senior housing. Objective - Appearance Appearance: Well Developed/Nourished Hygiene: Normal Grooming: Well Kept - Behavior Psychomotor Activities: Abnormal-Increased - Attitude and Relatedness Attitude and Relatedness: Regressed Eye Contact: Good - Speech Quality: Unpressured Latencies: Normal Quantity: Appropriate - Mood Patient's Decription of Mood: "Great" - Affect Observed Affect: Labile Affect Consistent with: Euthymia - Thought Process Patient's Thought Process: Coherent Thought Content: No Passive Wish, No Suicidal Planning, No Homicidal Ideation, No Paranoid Ideation - Sensorium Experiencing Hallucinations: No, Sensorium is Clear - Level of Consciousness Level of Consciousness: Alert - Impulse Control Impulse Control: Poor - Insight and Judgement Insight and Judgement: Fair Assessment - Assessment Merits Inpatient Hospitalization: To Initiate Treatment, For Ongoing Evaluation , Consolidate Improvements, For Discharge Planning, Pending Safe DC Plan Inpatient DSM-IV Dx: Mood D/o NOS Clinical Impression: 65 y/o female with history of multiple psychiatric admissions, mood and personality disorder, suicidal behavior and violence. She was admitted due to concern over her inability to fend for herself, having lost her housing due to aggressive behavior. Basically stable here, discharge is complicated by pt's homelessness. Medgmt is with lamotrigine, paroxetine, topiramate, lorazepam. Plan - Plan Treatment Plan: Name: HALEIGH SANCHEZ Birthdate: 1950 [id number] Medications: Current Medications Acetaminophen (Tylenol Tab*) 650 mg PO Q4H PRN PRN Reason: PAIN or TEMP > 101 F Last Admin: 08/21/16 17:08 Dose: 650 mg Calcium/Vitamin D (Oscal D Tab 250/125*) 2 tab PO BID [facility] Last Admin: 08/21/16 20:55 Dose: 2 tab Docusate Sodium (Colace Cap*) 100 mg PO BID [facility] Last Admin: 08/21/16 20:55 Dose: 100 mg Folic Acid (Folvite Tab*) 1 mg PO DAILY [facility] Last Admin: 08/21/16 09:28 Dose: 1 mg Ibuprofen (Motrin Tab*) 600 mg PO Q6H PRN PRN Reason: PAIN Lamotrigine (Lamictal Tab(*)) 300 mg PO DAILY [facility] Last Admin: 08/21/16 09:29 Dose: 300 mg Levothyroxine Sodium (Synthroid Tab*) 112 mcg PO DAILY@0600 [facility] Last Admin: 08/22/16 06:13 Dose: 112 mcg Lisinopril (Prinivil Tab*) 5 mg PO DAILY [facility] Last Admin: 08/21/16 09:29 Dose: 5 mg Lorazepam (Ativan Tab(*)) 0.5 mg PO BID PRN PRN Reason: ANXIETY Last Admin: 08/08/16 22:41 Dose: 0.5 mg Mirtazapine (Remeron Tab*) 30 mg PO BEDTIME [facility] Last Admin: 08/21/16 20:55 Dose: 30 mg Multivitamins (Theragran Tab*) 1 tab PO DAILY [facility] Last Admin: 08/21/16 09:28 Dose: 1 tab Nicotine (Nicotine Inhaler*) 10 mg INH Q2H PRN PRN Reason: CRAVING Paroxetine HCl (Paxil Tab*) 10 mg PO DAILY [facility] Last Admin: 08/21/16 09:29 Dose: 10 mg Psyllium Hydrophilic Mucilloid (Metamucil Porter*) 1 pkt PO DAILY PRN PRN Reason: CONSTIPATION Last Admin: 08/21/16 09:30 Dose: 1 pkt Topiramate (Topamax(*)) 25 mg PO BEDTIME [facility] Last Admin: 08/21/16 20:55 Dose: 25 mg Triamcinolone Acetonide (Triamcinolone 0.025% Oint *) 1 applic TOPICAL DAILY PRN PRN Reason: ITCHING - Discharge Plan Discharge Plan: Outpatient Follow Up
[2016-08-22] MEDS: Lisinopril TAB* 5 MG PO SCH (08:42)
[2016-08-22] MEDS: Vitamin THERAPEUTIC TAB PO SCH (08:42)
[2016-08-22] MEDS: Docusate CAP* 100 MG PO SCH ×2 (08:42→21:19)
[2016-08-22] MEDS: lamoTRIgine TAB(*) 100 MG PO SCH (08:42)
[2016-08-22] MEDS: PARoxetine HCL TAB* 10 MG PO SCH (08:42)
[2016-08-22] MEDS: Calcium/Vitamin D TAB 250/125* TAB PO SCH ×2 (08:42→21:19)
[2016-08-22] MEDS: Folic Acid TAB* 1 MG PO SCH (08:42)
[2016-08-22] MEDS: Psyllium PAK PO PRN (09:04)
--- NOTE | 2016-08-22 11:10 | PN ---
MHU: Group Therapy Note - Service Type Service Type: [id number] Group Psychotherapy - Cognitive Behavioral Group Therapy ( CBT):Patient was attentive and participatory in CBT programming this morning, and remained in good behavioral control. Patient expressed positive insights regarding relevant treatment interventions and goals.
[2016-08-22] MEDS: Mirtazapine TAB* 15 MG PO SCH (21:19)
[2016-08-22] MEDS: Topiramate TAB(*) 25 MG PO SCH (21:20)
[2016-08-23] MEDS: Levothyroxine TAB* 112 MCG TAB PO SCH (05:18)
[2016-08-23] MEDS: Folic Acid TAB* 1 MG PO SCH (08:34)
[2016-08-23] MEDS: PARoxetine HCL TAB* 10 MG PO SCH (08:34)
[2016-08-23] MEDS: lamoTRIgine TAB(*) 100 MG PO SCH (08:34)
[2016-08-23] MEDS: Psyllium PAK PO PRN (08:34)
[2016-08-23] MEDS: Vitamin THERAPEUTIC TAB PO SCH (08:34)
[2016-08-23] MEDS: Docusate CAP* 100 MG PO SCH ×2 (08:34→20:27)
[2016-08-23] MEDS: Lisinopril TAB* 5 MG PO SCH (08:35)
[2016-08-23] MEDS: Calcium/Vitamin D TAB 250/125* TAB PO SCH ×2 (08:35→20:27)
--- NOTE | 2016-08-23 11:23 | PN ---
MHU: Group Therapy Note - Service Type Service Type: [id number] Group Psychotherapy - Cognitive Behavioral Group Therapy ( CBT):Patient was attentive and participatory in CBT programming this morning, and remained in good behavioral control. Patient expressed positive insights regarding relevant treatment interventions and goals.
[2016-08-23] MEDS: Mirtazapine TAB* 15 MG PO SCH (20:27)
[2016-08-23] MEDS: Topiramate TAB(*) 25 MG PO SCH (20:27)
[2016-08-24] MEDS: Lisinopril TAB* 5 MG PO SCH (08:22)
[2016-08-24] MEDS: lamoTRIgine TAB(*) 100 MG PO SCH (08:23)
[2016-08-24] MEDS: Folic Acid TAB* 1 MG PO SCH (08:26)
[2016-08-24] MEDS: Levothyroxine TAB* 112 MCG TAB PO SCH (08:26)
[2016-08-24] MEDS: Calcium/Vitamin D TAB 250/125* TAB PO SCH ×2 (08:26→21:04)
[2016-08-24] MEDS: PARoxetine HCL TAB* 10 MG PO SCH (08:26)
[2016-08-24] MEDS: Vitamin THERAPEUTIC TAB PO SCH (08:26)
[2016-08-24] MEDS: Docusate CAP* 100 MG PO SCH ×2 (08:26→21:04)
[2016-08-24] MEDS: Psyllium PAK PO PRN (09:17)
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
[2016-08-24] MEDS: Mirtazapine TAB* 15 MG PO SCH (21:04)
[2016-08-24] MEDS: Topiramate TAB(*) 25 MG PO SCH (21:04)
[2016-08-25] MEDS: Levothyroxine TAB* 112 MCG TAB PO SCH (05:56)
[2016-08-25] MEDS: Acetaminophen TAB* 325 MG PO PRN ×2 (08:42→18:53)
[2016-08-25] MEDS: Folic Acid TAB* 1 MG PO SCH (08:43)
[2016-08-25] MEDS: lamoTRIgine TAB(*) 100 MG PO SCH (08:43)
[2016-08-25] MEDS: Vitamin THERAPEUTIC TAB PO SCH (08:43)
[2016-08-25] MEDS: Lisinopril TAB* 5 MG PO SCH (08:44)
[2016-08-25] MEDS: PARoxetine HCL TAB* 10 MG PO SCH (08:44)
[2016-08-25] MEDS: Docusate CAP* 100 MG PO SCH ×2 (08:44→21:09)
[2016-08-25] MEDS: Calcium/Vitamin D TAB 250/125* TAB PO SCH ×2 (08:45→21:09)
[2016-08-25] MEDS: Psyllium PAK PO PRN (08:52)
[2016-08-25] MEDS: Mirtazapine TAB* 15 MG PO SCH (21:08)
[2016-08-25] MEDS: Topiramate TAB(*) 25 MG PO SCH (21:09)
[2016-08-26] MEDS: Levothyroxine TAB* 112 MCG TAB PO SCH (05:32)
[2016-08-26] MEDS: Acetaminophen TAB* 325 MG PO PRN (05:39)
[2016-08-26] MEDS: PARoxetine HCL TAB* 10 MG PO SCH (08:33)
[2016-08-26] MEDS: Folic Acid TAB* 1 MG PO SCH (08:33)
[2016-08-26] MEDS: Calcium/Vitamin D TAB 250/125* TAB PO SCH ×2 (08:33→22:13)
[2016-08-26] MEDS: Docusate CAP* 100 MG PO SCH ×2 (08:34→22:02)
[2016-08-26] MEDS: lamoTRIgine TAB(*) 100 MG PO SCH (08:34)
[2016-08-26] MEDS: Vitamin THERAPEUTIC TAB PO SCH (08:34)
[2016-08-26] MEDS: Lisinopril TAB* 5 MG PO SCH (08:34)
--- NOTE | 2016-08-26 13:17 | PN ---
MHU: Group Therapy Note - Service Type Service Type: [id number] Group Psychotherapy - Cognitive Behavioral Group Therapy ( CBT):Patient was attentive and participatory in CBT programming this morning, and remained in good behavioral control. Patient expressed positive insights regarding relevant treatment interventions and goals.
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
[2016-08-26] MEDS: Mirtazapine TAB* 15 MG PO SCH (22:02)
[2016-08-26] MEDS: Topiramate TAB(*) 25 MG PO SCH (22:02)
[2016-08-27] MEDS: Levothyroxine TAB* 112 MCG TAB PO SCH (05:54)
[2016-08-27] MEDS: Folic Acid TAB* 1 MG PO SCH (08:59)
[2016-08-27] MEDS: Docusate CAP* 100 MG PO SCH ×2 (09:00→21:32)
[2016-08-27] MEDS: PARoxetine HCL TAB* 10 MG PO SCH (09:00)
[2016-08-27] MEDS: Calcium/Vitamin D TAB 250/125* TAB PO SCH ×2 (09:00→21:32)
[2016-08-27] MEDS: lamoTRIgine TAB(*) 100 MG PO SCH (09:00)
[2016-08-27] MEDS: Vitamin THERAPEUTIC TAB PO SCH (09:00)
[2016-08-27] MEDS: Lisinopril TAB* 5 MG PO SCH (09:00)
[2016-08-27] MEDS: Psyllium PAK PO PRN (09:02)
[2016-08-27] MEDS: Acetaminophen TAB* 325 MG PO PRN (12:52)
[2016-08-27] MEDS: Topiramate TAB(*) 25 MG PO SCH (21:32)
[2016-08-27] MEDS: Mirtazapine TAB* 15 MG PO SCH (21:32)
[2016-08-28] MEDS: Levothyroxine TAB* 112 MCG TAB PO SCH (06:14)
[2016-08-28] MEDS: Psyllium PAK PO PRN (08:57)
[2016-08-28] MEDS: Calcium/Vitamin D TAB 250/125* TAB PO SCH ×2 (08:57→20:31)
[2016-08-28] MEDS: Docusate CAP* 100 MG PO SCH ×2 (08:57→20:32)
[2016-08-28] MEDS: Lisinopril TAB* 5 MG PO SCH (08:57)
[2016-08-28] MEDS: lamoTRIgine TAB(*) 100 MG PO SCH (08:57)
[2016-08-28] MEDS: Folic Acid TAB* 1 MG PO SCH (08:58)
[2016-08-28] MEDS: PARoxetine HCL TAB* 10 MG PO SCH (08:58)
[2016-08-28] MEDS: Vitamin THERAPEUTIC TAB PO SCH (08:58)
[2016-08-28] MEDS: Topiramate TAB(*) 25 MG PO SCH (20:32)
[2016-08-28] MEDS: Mirtazapine TAB* 15 MG PO SCH (20:32)
[2016-08-29] MEDS: Levothyroxine TAB* 112 MCG TAB PO SCH (06:00)
[2016-08-29] MEDS: Lisinopril TAB* 5 MG PO SCH (08:57)
[2016-08-29] MEDS: PARoxetine HCL TAB* 10 MG PO SCH (08:58)
[2016-08-29] MEDS: lamoTRIgine TAB(*) 100 MG PO SCH (08:58)
[2016-08-29] MEDS: Folic Acid TAB* 1 MG PO SCH (08:58)
[2016-08-29] MEDS: Vitamin THERAPEUTIC TAB PO SCH (08:59)
[2016-08-29] MEDS: Docusate CAP* 100 MG PO SCH ×2 (08:59→21:25)
[2016-08-29] MEDS: Calcium/Vitamin D TAB 250/125* TAB PO SCH ×2 (08:59→21:23)
[2016-08-29] MEDS: Psyllium PAK PO PRN (09:00)
[2016-08-29] MEDS: Acetaminophen TAB* 325 MG PO PRN (09:03)
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
[2016-08-29] MEDS: Topiramate TAB(*) 25 MG PO SCH (21:24)
[2016-08-29] MEDS: Mirtazapine TAB* 15 MG PO SCH (21:24)
[2016-08-30] MEDS: Levothyroxine TAB* 112 MCG TAB PO SCH (05:57)
[2016-08-30] MEDS: Calcium/Vitamin D TAB 250/125* TAB PO SCH ×2 (09:09→20:57)
[2016-08-30] MEDS: PARoxetine HCL TAB* 10 MG PO SCH (09:09)
[2016-08-30] MEDS: Vitamin THERAPEUTIC TAB PO SCH (09:09)
[2016-08-30] MEDS: Folic Acid TAB* 1 MG PO SCH (09:09)
[2016-08-30] MEDS: lamoTRIgine TAB(*) 100 MG PO SCH (09:09)
[2016-08-30] MEDS: Docusate CAP* 100 MG PO SCH ×2 (09:09→20:58)
[2016-08-30] MEDS: Lisinopril TAB* 5 MG PO SCH (09:09)
[2016-08-30] MEDS: Psyllium PAK PO PRN (09:14)
[2016-08-30] MEDS: Topiramate TAB(*) 25 MG PO SCH (20:57)
[2016-08-30] MEDS: Mirtazapine TAB* 15 MG PO SCH (20:58)
[2016-08-31] MEDS: Acetaminophen TAB* 325 MG PO PRN ×2 (01:56→21:58)
[2016-08-31] MEDS: Levothyroxine TAB* 112 MCG TAB PO SCH (06:00)
[2016-08-31] MEDS: Lisinopril TAB* 5 MG PO SCH (08:51)
[2016-08-31] MEDS: PARoxetine HCL TAB* 10 MG PO SCH (08:51)
[2016-08-31] MEDS: Vitamin THERAPEUTIC TAB PO SCH (08:51)
[2016-08-31] MEDS: Folic Acid TAB* 1 MG PO SCH (08:51)
[2016-08-31] MEDS: Docusate CAP* 100 MG PO SCH ×2 (08:51→21:53)
[2016-08-31] MEDS: lamoTRIgine TAB(*) 100 MG PO SCH (08:52)
[2016-08-31] MEDS: Calcium/Vitamin D TAB 250/125* TAB PO SCH ×2 (08:52→21:52)
[2016-08-31] MEDS: Psyllium PAK PO PRN (14:09)
[2016-08-31] MEDS: Mirtazapine TAB* 15 MG PO SCH (21:52)
[2016-08-31] MEDS: Topiramate TAB(*) 25 MG PO SCH (21:53)
[2016-09-01] MEDS: Levothyroxine TAB* 112 MCG TAB PO SCH (06:05)
[2016-09-01] MEDS: Vitamin THERAPEUTIC TAB PO SCH (09:07)
[2016-09-01] MEDS: Lisinopril TAB* 5 MG PO SCH (09:07)
[2016-09-01] MEDS: PARoxetine HCL TAB* 10 MG PO SCH (09:07)
[2016-09-01] MEDS: Docusate CAP* 100 MG PO SCH ×2 (09:07→21:28)
[2016-09-01] MEDS: Folic Acid TAB* 1 MG PO SCH (09:07)
[2016-09-01] MEDS: lamoTRIgine TAB(*) 100 MG PO SCH (09:07)
[2016-09-01] MEDS: Psyllium PAK PO PRN (09:08)
[2016-09-01] MEDS: Calcium/Vitamin D TAB 250/125* TAB PO SCH ×2 (09:08→21:28)
[2016-09-01] MEDS: Mirtazapine TAB* 15 MG PO SCH (21:28)
[2016-09-01] MEDS: Topiramate TAB(*) 25 MG PO SCH (21:28)
[2016-09-02] MEDS: Folic Acid TAB* 1 MG PO SCH (08:45)
[2016-09-02] MEDS: Docusate CAP* 100 MG PO SCH ×2 (08:45→22:09)
[2016-09-02] MEDS: Lisinopril TAB* 5 MG PO SCH (08:45)
[2016-09-02] MEDS: Calcium/Vitamin D TAB 250/125* TAB PO SCH ×2 (08:45→22:09)
[2016-09-02] MEDS: PARoxetine HCL TAB* 10 MG PO SCH (08:46)
[2016-09-02] MEDS: Vitamin THERAPEUTIC TAB PO SCH (08:46)
[2016-09-02] MEDS: lamoTRIgine TAB(*) 100 MG PO SCH (08:46)
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
[2016-09-02] MEDS: Levothyroxine TAB* 112 MCG TAB PO SCH (15:44)
[2016-09-02] MEDS: Topiramate TAB(*) 25 MG PO SCH (22:09)
[2016-09-02] MEDS: Mirtazapine TAB* 15 MG PO SCH (22:09)
[2016-09-03] MEDS: Levothyroxine TAB* 112 MCG TAB PO SCH (06:15)
[2016-09-03] MEDS: Calcium/Vitamin D TAB 250/125* TAB PO SCH ×2 (09:13→22:06)
[2016-09-03] MEDS: Folic Acid TAB* 1 MG PO SCH (09:13)
[2016-09-03] MEDS: lamoTRIgine TAB(*) 100 MG PO SCH (09:13)
[2016-09-03] MEDS: PARoxetine HCL TAB* 10 MG PO SCH (09:14)
[2016-09-03] MEDS: Psyllium PAK PO PRN (09:14)
[2016-09-03] MEDS: Docusate CAP* 100 MG PO SCH ×2 (09:14→22:06)
[2016-09-03] MEDS: Lisinopril TAB* 5 MG PO SCH (09:14)
[2016-09-03] MEDS: Vitamin THERAPEUTIC TAB PO SCH (09:14)
[2016-09-03] MEDS: Mirtazapine TAB* 15 MG PO SCH (22:07)
[2016-09-03] MEDS: Topiramate TAB(*) 25 MG PO SCH (22:07)
[2016-09-03] MEDS: Acetaminophen TAB* 325 MG PO PRN (22:08)
[2016-09-04] MEDS: Levothyroxine TAB* 112 MCG TAB PO SCH (07:49)
[2016-09-04] MEDS: Acetaminophen TAB* 325 MG PO PRN (07:50)
[2016-09-04] MEDS: Folic Acid TAB* 1 MG PO SCH (09:16)
[2016-09-04] MEDS: PARoxetine HCL TAB* 10 MG PO SCH (09:16)
[2016-09-04] MEDS: Calcium/Vitamin D TAB 250/125* TAB PO SCH ×2 (09:16→20:52)
[2016-09-04] MEDS: Vitamin THERAPEUTIC TAB PO SCH (09:16)
[2016-09-04] MEDS: Docusate CAP* 100 MG PO SCH ×2 (09:16→20:52)
[2016-09-04] MEDS: lamoTRIgine TAB(*) 100 MG PO SCH (09:16)
[2016-09-04] MEDS: Lisinopril TAB* 5 MG PO SCH (09:16)
[2016-09-04] MEDS: Psyllium PAK PO PRN (09:18)
[2016-09-04] MEDS: Mirtazapine TAB* 15 MG PO SCH (20:52)
[2016-09-04] MEDS: Topiramate TAB(*) 25 MG PO SCH (20:52)
[2016-09-05] MEDS: Levothyroxine TAB* 112 MCG TAB PO SCH (06:35)
[2016-09-05] MEDS: lamoTRIgine TAB(*) 100 MG PO SCH (08:56)
[2016-09-05] MEDS: Lisinopril TAB* 5 MG PO SCH (08:56)
[2016-09-05] MEDS: Psyllium PAK PO PRN (08:56)
[2016-09-05] MEDS: Docusate CAP* 100 MG PO SCH ×2 (08:57→21:46)
[2016-09-05] MEDS: Calcium/Vitamin D TAB 250/125* TAB PO SCH ×2 (08:57→21:45)
[2016-09-05] MEDS: Folic Acid TAB* 1 MG PO SCH (08:57)
[2016-09-05] MEDS: Vitamin THERAPEUTIC TAB PO SCH (08:57)
[2016-09-05] MEDS: PARoxetine HCL TAB* 10 MG PO SCH (08:57)
--- NOTE | 2016-09-05 11:15 | PN ---
Subjective - Subjective Service Type: 06751 Hosp care 15 min low complexity Subjective: Haleigh reported feeling well physically and emotionally. Is pleased with discharge plan, liked [facility], has no complaints. Objective - Appearance Appearance: Well Developed/Nourished Hygiene: Normal Grooming: Fairly Well Kept - Behavior Psychomotor Activities: Normal - Attitude and Relatedness Attitude and Relatedness: Child Like Eye Contact: Good - Speech Quality: Unpressured Latencies: Normal Quantity: Appropriate - Mood Patient's Decription of Mood: "Good" - Affect Observed Affect: Labile Affect Consistent with: Euthymia - Thought Process Patient's Thought Process: Coherent, Impoverished Thought Content: No Passive Wish, No Suicidal Planning, No Homicidal Ideation, No Paranoid Ideation - Sensorium Experiencing Hallucinations: No, Sensorium is Clear - Level of Consciousness Level of Consciousness: Alert - Impulse Control Impulse Control: Intact - Insight and Judgement Insight and Judgement: Fair Assessment - Assessment Merits Inpatient Hospitalization: Pending Safe DC Plan Inpatient DSM-IV Dx: Mood D/o NOS Clinical Impression: 65 y/o female with history of multiple psychiatric admissions, mood and personality disorder, suicidal behavior and violence. She was admitted due to concern over her inability to fend for herself, having lost her housing due to aggressive behavior. Basically stable here, clinically at baseline. Discharge was complicated by pt's homelessness - Haleigh is now accepted at [facility] - expect d/c in next few days. Medgmt is with lamotrigine, paroxetine, topiramate, lorazepam. Plan - Plan Treatment Plan: Name: HALEIGH SANCHEZ Birthdate: 1950 [id number] Medications: Current Medications Acetaminophen (Tylenol Tab*) 650 mg PO Q4H PRN PRN Reason: PAIN or TEMP > 101 F Last Admin: 09/04/16 07:50 Dose: 650 mg Calcium/Vitamin D (Oscal D Tab 250/125*) 2 tab PO BID [facility] Last Admin: 09/05/16 08:57 Dose: 2 tab Docusate Sodium (Colace Cap*) 100 mg PO BID [facility] Last Admin: 09/05/16 08:57 Dose: 100 mg Folic Acid (Folvite Tab*) 1 mg PO DAILY [facility] Last Admin: 09/05/16 08:57 Dose: 1 mg Ibuprofen (Motrin Tab*) 600 mg PO Q6H PRN PRN Reason: PAIN Lamotrigine (Lamictal Tab(*)) 300 mg PO DAILY [facility] Last Admin: 09/05/16 08:56 Dose: 300 mg Levothyroxine Sodium (Synthroid Tab*) 112 mcg PO DAILY@0600 [facility] Last Admin: 09/05/16 06:35 Dose: 112 mcg Lisinopril (Prinivil Tab*) 5 mg PO DAILY [facility] Last Admin: 09/05/16 08:56 Dose: 5 mg Lorazepam (Ativan Tab(*)) 0.5 mg PO BID PRN PRN Reason: ANXIETY Last Admin: 08/08/16 22:41 Dose: 0.5 mg Mirtazapine (Remeron Tab*) 30 mg PO BEDTIME [facility] Last Admin: 09/04/16 20:52 Dose: 30 mg Multivitamins (Theragran Tab*) 1 tab PO DAILY [facility] Last Admin: 09/05/16 08:57 Dose: 1 tab Nicotine (Nicotine Inhaler*) 10 mg INH Q2H PRN PRN Reason: CRAVING Paroxetine HCl (Paxil Tab*) 10 mg PO DAILY [facility] Last Admin: 09/05/16 08:57 Dose: 10 mg Psyllium Hydrophilic Mucilloid (Metamucil Porter*) 1 pkt PO DAILY PRN PRN Reason: CONSTIPATION Last Admin: 09/05/16 08:56 Dose: 1 pkt Topiramate (Topamax(*)) 25 mg PO BEDTIME [facility] Last Admin: 09/04/16 20:52 Dose: 25 mg Triamcinolone Acetonide (Triamcinolone 0.025% Oint *) 1 applic TOPICAL DAILY PRN PRN Reason: ITCHING
--- NOTE | 2016-09-05 12:47 | PN ---
MHU: Group Therapy Note - Service Type Service Type: [id number] Group Psychotherapy - Cognitive Behavioral Group Therapy ( CBT):Patient was attentive and participatory in CBT programming this morning, and remained in good behavioral control. Patient expressed positive insights regarding relevant treatment interventions and goals.
[2016-09-05] MEDS: Topiramate TAB(*) 25 MG PO SCH (21:46)
[2016-09-05] MEDS: Mirtazapine TAB* 15 MG PO SCH (21:46)
[2016-09-06] MEDS: Levothyroxine TAB* 112 MCG TAB PO SCH (06:30)
[2016-09-06] MEDS: Docusate CAP* 100 MG PO SCH ×2 (08:45→21:19)
[2016-09-06] MEDS: PARoxetine HCL TAB* 10 MG PO SCH (08:45)
[2016-09-06] MEDS: Vitamin THERAPEUTIC TAB PO SCH (08:45)
[2016-09-06] MEDS: Lisinopril TAB* 5 MG PO SCH (08:45)
[2016-09-06] MEDS: lamoTRIgine TAB(*) 100 MG PO SCH (08:45)
[2016-09-06] MEDS: Psyllium PAK PO PRN (08:45)
[2016-09-06] MEDS: Calcium/Vitamin D TAB 250/125* TAB PO SCH ×2 (08:46→20:57)
[2016-09-06] MEDS: Folic Acid TAB* 1 MG PO SCH (08:46)
--- NOTE | 2016-09-06 13:04 | PN ---
MHU: Group Therapy Note - Service Type Service Type: [id number] Group Psychotherapy - Cognitive Behavioral Group Therapy ( CBT):Patient was attentive and participatory in CBT programming this morning, and remained in good behavioral control. Patient expressed positive insights regarding relevant treatment interventions and goals.
[2016-09-06] MEDS: Mirtazapine TAB* 15 MG PO SCH (20:57)
[2016-09-06] MEDS: Topiramate TAB(*) 25 MG PO SCH (20:58)
[2016-09-07] MEDS: Acetaminophen TAB* 325 MG PO PRN (04:10)
[2016-09-07] MEDS: Levothyroxine TAB* 112 MCG TAB PO SCH (05:47)
[2016-09-07 07:55] VITALS: BP 127/68
--- NOTE | 2016-09-07 08:48 | DS ---
Subjective - Subjective Service Types: 05217 Hosp DC Day Mgmt simple under 30 min Discharge Date: 09/07/16 Subjective: Fannie was pleased with discharge plan and happy to get going. She expressed appreciation. She said she sees no obstacles to routine or emergency support. We reviewed her medication and aftercare plan. Fannie accepted offer of Tamiflu prophylaxis after being informed of its i/r/b and the fact of a positive Influenza A test in a peer here. Discussed DNR status: Fannie capably expressed understanding of it's meaning, how it would apply to her, and how it fits with her expectations and preferences. She asks for DNR status order for [facility] and it is appropriate. Objective - Appearance Appearance: Well Developed/Nourished Hygiene: Normal Grooming: Well Kept - Behavior Psychomotor Activities: Abnormal-Increased - Attitude and Relatedness Attitude and Relatedness: Cooperative Eye Contact: Good - Speech Quality: Unpressured Latencies: Normal Quantity: Appropriate - Mood Patient's Decription of Mood: "Good" - Affect Observed Affect: Labile Affect Consistent with: Euthymia - Thought Process Patient's Thought Process: Coherent Thought Content: No Passive Wish, No Suicidal Planning, No Homicidal Ideation, No Paranoid Ideation - Sensorium Experiencing Hallucinations: No, Sensorium is Clear - Level of Consciousness Level of Consciousness: Alert - Impulse Control Impulse Control: Intact - Insight and Judgement Insight and Judgement: Fair Treatment Course & Assessment Clinical Course & Impression: 65 y/o female with history of multiple psychiatric admissions, mood and personality disorder, suicidal behavior and violence. She was admitted due to concern over her inability to fend for herself, having lost her housing due to aggressive behavior. 09/07/16 Clear for release. Fannie attained behavioral and mental stability her stable here, clinically she has been at baseline, with dramatic expressions, lability, and support needs. Discharge was complicated by pt's homelessness - Fannie is now accepted at [facility] - it is appropriate. Medgmt is with lamotrigine, paroxetine, Remeron, topiramate. Per infection control we offered pt. Tamiflu course after a peer was dx'd with Influenza A. Fannie is at chronic risk for similar episodes. At this point acute risk of harm to self other is assessed as low on basis of Fannie's low symptom burden and benign recent behavior and ideation. Clear for Discharge: Adequate Clinical Respons, Acceptable Safety Profile, Low Utility of In Care Inpatient DSM-IV Dx: Mood disorder NOS Discharge Planning - Discharge Planning Discharge Plan: Outpatient Follow Up Recommendations for Continuing Care: Medication Management, Psychotherapy, Primary Care Followup Medications: Current Medications Calcium/Vitamin D (Oscal D Tab 250/125*) 2 tab PO BID [facility] Last Admin: 09/06/16 20:57 Dose: 2 tab Docusate Sodium (Colace Cap*) 100 mg PO BID [facility] Last Admin: 09/06/16 21:19 Dose: 100 mg Folic Acid (Folvite Tab*) 1 mg PO DAILY [facility] Last Admin: 09/06/16 08:46 Dose: 1 mg Lamotrigine (Lamictal Tab(*)) 300 mg PO DAILY [facility] Last Admin: 09/06/16 08:45 Dose: 300 mg Levothyroxine Sodium (Synthroid Tab*) 112 mcg PO DAILY@0600 [facility] Last Admin: 09/07/16 05:47 Dose: 112 mcg Lisinopril (Prinivil Tab*) 5 mg PO DAILY [facility] Last Admin: 09/06/16 08:45 Dose: 5 mg Mirtazapine (Remeron Tab*) 30 mg PO BEDTIME [facility] Last Admin: 09/06/16 20:57 Dose: 30 mg Multivitamins (Theragran Tab*) 1 tab PO DAILY [facility] Last Admin: 09/06/16 08:45 Dose: 1 tab Paroxetine HCl (Paxil Tab*) 10 mg PO DAILY [facility] Last Admin: 09/06/16 08:45 Dose: 10 mg Psyllium Hydrophilic Mucilloid (Metamucil Porter*) 1 pkt PO DAILY PRN PRN Reason: CONSTIPATION Last Admin: 09/06/16 08:45 Dose: 1 pkt Topiramate (Topamax(*)) 25 mg PO BEDTIME [facility] Last Admin: 09/06/16 20:58 Dose: 25 mg Tamiflu 75mg PO daily for 9 days then stop Discharge Planning: Prescriptions provided for discharge [x] Yes [] No Follow up care details as per social work arrangements. Patient response to discharge plan: [x] eager for discharge [] agreeable with discharge plan [] ambivalent about discharge [] disagrees with discharge today
[2016-09-07] MEDS: Vitamin THERAPEUTIC TAB PO SCH (08:52)
[2016-09-07] MEDS: Folic Acid TAB* 1 MG PO SCH (08:52)
[2016-09-07] MEDS: lamoTRIgine TAB(*) 100 MG PO SCH (08:53)
[2016-09-07] MEDS: Lisinopril TAB* 5 MG PO SCH (08:53)
[2016-09-07] MEDS: Docusate CAP* 100 MG PO SCH (08:53)
[2016-09-07] MEDS: Calcium/Vitamin D TAB 250/125* TAB PO SCH (08:53)
[2016-09-07] MEDS: PARoxetine HCL TAB* 10 MG PO SCH (08:54)
[2016-09-07] MEDS: Psyllium PAK PO PRN (08:57)
[2016-09-07] MEDS ORDERED: Oseltamivir CAP* 75 MG PO SCH (09:00)
== END 2016-09-07 09:30 | DRG 885 ==
LOC: ED 10:24 → BSU 08-11 16:28
PROVIDERS: ADMIT Psychiatry & Neurology Psychiatry; ATTEND Psychiatry & Neurology Psychiatry
PROC: GZ3ZZZZ Medication Management (ICD-10-PCS; principal; 2016-08-11)
PROC: GZHZZZZ Group Psychotherapy (ICD-10-PCS; 2016-08-11)
DX: F39 Unspecified mood [affective] disorder (principal); I10 Essential (primary) hypertension; E03.9 Hypothyroidism, unspecified; F31.9 Bipolar disorder, unspecified; F43.25 Adjustment disorder with mixed disturbance of emotions and conduct; F43.10 Post-traumatic stress disorder, unspecified; R45.1 Restlessness and agitation; Z59.0 Homelessness; Z90.49 Acquired absence of other specified parts of digestive tract; Z88.8 Allergy status to other drugs, medicaments and biological substances; Z90.710 Acquired absence of both cervix and uterus
CPT/HCPCS: 36415; 80053; 80175; 80307; 80320; 80329; 81003; 81015; 84443; 85025; 86703; 86706; 86803; 87086; 87340; 90853; 93005; 99222; 99231; 99238; A9270-GY; G0480

== ENCOUNTER 2016-09-13 10:44 | Emergency (ER) | payer MEDICARE ==
[2016-09-13 11:47] LABS: Hematocrit 42 % (35-47); Hemoglobin 13.9 g/dl (12.0-16.0); Mean Corpuscular HGB Conc 33 g/dl (31-36); Mean Corpuscular Hemoglobin 30 pg (27-31); Mean Corpuscular Volume 92 fL (80-97); Mean Platelet Volume 8 um3 (7.4-10.4); Red Blood Count 4.61 10^6/ul (4.0-5.4); Red Cell Distribution Width 12 % (10.5-15); White Blood Count 6.1 10^3/ul (3.5-10.8)
[2016-09-13 11:58] LABS: ALT 15 U/L (7-52); AST 19 U/L (13-39); Albumin 4.3 g/dL (3.2-5.2); Alkaline Phosphatase 79 U/L (34-104); Anion Gap 6 mmol/L (2-11); BUN/Creatinine Ratio 28.4 (8-20); Blood Urea Nitrogen 25 mg/dL (6-24); CO2 Carbon Dioxide 26 mmol/L (22-32); Chloride 104 mmol/L (101-111); EGFR African American 82.9 (>60); EGFR Non-African American 64.5 (>60); Globulin 3.2 g/dL (2-4); Glucose 97 mg/dL (70-100); Potassium 4.2 mmol/L (3.5-5.0); Sodium 136 mmol/L (133-145); Total Protein 7.5 g/dL (6.4-8.9); Urine Bacteria Absent (Absent); Urine Bilirubin Negative (Negative); Urine Glucose Negative (Negative); Urine Nitrite Negative (Negative)
[2016-09-13 12:11] LABS: Acetaminophen < 15 mcg/mL; Alcohol < 10 mg/dL (<10); Salicylate < 2.50 mg/dL (<30)
[2016-09-13 12:15] LABS: Benzodiazepine Urine Screen None Detected (None Detect)
[2016-09-13 12:20] LABS: TSH (Thyroid Stimulating Horm) 0.21 mcIU/mL (0.34-5.60)
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
[2016-09-13 12:36] VITALS: BP 104/63
[2016-09-13] MEDS ORDERED: Acetaminophen TAB* 325 MG PO PRN (22:56)
[2016-09-13] MEDS ORDERED: LORazepam TAB(*) 0.5 MG PO PRN (22:57)
[2016-09-13] MEDS ORDERED: Ibuprofen TAB* 600 MG PO PRN (22:57)
[2016-09-13] MEDS ORDERED: Mirtazapine TAB* 15 MG PO SCH (23:00)
[2016-09-13] MEDS ORDERED: Topiramate TAB(*) 25 MG PO SCH (23:00)
[2016-09-13] MEDS: Docusate CAP* 100 MG PO SCH (23:08)
[2016-09-14] MEDS ORDERED: Psyllium PAK PO PRN (02:29)
[2016-09-14] MEDS ORDERED: Triamcinolone 0.025% OINT * 15 GM TUBE TOPICAL PRN (02:29)
[2016-09-14] MEDS ORDERED: Levothyroxine TAB* 112 MCG TAB PO SCH (06:00)
[2016-09-14] MEDS: Docusate CAP* 100 MG PO SCH (08:29)
[2016-09-14] MEDS ORDERED: Calcium/Vitamin D TAB 250/125* TAB PO SCH (09:00)
[2016-09-14] MEDS ORDERED: Lisinopril TAB* 5 MG PO SCH (09:00)
[2016-09-14] MEDS ORDERED: PARoxetine HCL TAB* 10 MG PO SCH (09:00)
[2016-09-14] MEDS ORDERED: lamoTRIgine TAB(*) 100 MG PO SCH (09:00)
[2016-09-14] MEDS ORDERED: Folic Acid TAB* 1 MG PO SCH (09:00)
== END 2016-09-14 14:00 | disposition short-term general hospital (02) ==
LOC: ED 10:44
DX: F34.9 Persistent mood [affective] disorder, unspecified (principal); F41.9 Anxiety disorder, unspecified; F32.9 Major depressive disorder, single episode, unspecified
CPT/HCPCS: 36415; 80053; 80307; 80320; 80329; 81003; 81015; 84443; 85025; 87086; 99282; A9270-GY; G0480

== ENCOUNTER 2016-09-21 10:30 | Inpatient (IN) | payer MEDICARE ==
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
[2016-09-21] MEDS ORDERED: Topiramate TAB(*) 25 MG ONE (18:54)
[2016-09-21] MEDS ORDERED: Mirtazapine TAB* 15 MG ONE (18:54)
[2016-09-21 19:08] LABS: Hematocrit 44 % (35-47); Hemoglobin 14.5 g/dl (12.0-16.0); Mean Corpuscular HGB Conc 33 g/dl (31-36); Mean Corpuscular Hemoglobin 30 pg (27-31); Mean Corpuscular Volume 92 fL (80-97); Mean Platelet Volume 9 um3 (7.4-10.4); Red Blood Count 4.82 10^6/ul (4.0-5.4); Red Cell Distribution Width 12 % (10.5-15); Urine Bilirubin Negative (Negative); Urine Glucose Negative (Negative); Urine Nitrite Negative (Negative); White Blood Count 5.4 10^3/ul (3.5-10.8)
[2016-09-21 19:16] LABS: ALT 14 U/L (7-52); AST 18 U/L (13-39); Albumin 4.5 g/dL (3.2-5.2); Alkaline Phosphatase 76 U/L (34-104); Anion Gap 5 mmol/L (2-11); BUN/Creatinine Ratio 21.7 (8-20); Blood Urea Nitrogen 20 mg/dL (6-24); CO2 Carbon Dioxide 26 mmol/L (22-32); Chloride 106 mmol/L (101-111); EGFR African American 78.8 (>60); EGFR Non-African American 61.3 (>60); Globulin 3.2 g/dL (2-4); Glucose 96 mg/dL (70-100); Sodium 137 mmol/L (133-145); Total Protein 7.7 g/dL (6.4-8.9)
[2016-09-21 19:17] LABS: Acetaminophen < 15 mcg/mL; Alcohol < 10 mg/dL (<10); Salicylate < 2.50 mg/dL (<30)
[2016-09-21 19:20] LABS: Benzodiazepine Urine Screen None Detected (None Detect)
[2016-09-21 19:28] LABS: TSH (Thyroid Stimulating Horm) 0.14 mcIU/mL (0.34-5.60)
[2016-09-21] MEDS ORDERED: Mirtazapine TAB* 15 MG PO ONE (21:00)
[2016-09-21] MEDS ORDERED: Topiramate TAB(*) 25 MG PO ONE (21:00)
[2016-09-22] MEDS ORDERED: PARoxetine HCL TAB* 10 MG PO ONE (08:36)
[2016-09-22] MEDS ORDERED: Mirtazapine TAB* 15 MG PO PRN (08:36)
[2016-09-22] MEDS ORDERED: Lisinopril TAB* 5 MG PO ONE (08:37)
[2016-09-22] MEDS ORDERED: Folic Acid TAB* 1 MG PO ONE (08:39)
[2016-09-22] MEDS ORDERED: lamoTRIgine TAB(*) 100 MG PO ONE (08:40)
--- NOTE | 2016-09-22 11:46 | PN ---
ED Flex Patient Progress Note Subjective: This is a 65 year-old separted white female with a history of bipolar DO who returns to the ER due to agitated, [facility]. She remains hyperverbal with poor insight and high impulsivity at this time. Objective: The patient is a slender, aging white female who presents as very child-like with simplistic speech, hypomanic mood and expansive, labile affect. She denies SI or HI. Denies AH or VH. Insight and judgment are impaired. Awake and alert with low-average intellect by virtue of vocabulary. Assessment: Bipolar Affective DO; current manic Plan: Patient pending transfer to available [facility] bed. Vital Signs Temp Pulse Resp BP Pulse Ox 100.1 F 62 16 119/63 94 09/22/16 11:28 09/22/16 11:28 09/22/16 11:28 09/22/16 11:28 09/22/16 11:28 Lab Results - Entire Visit 09/21/16 09/21/16 09/21/16 10:58 10:58 10:58 WBC RBC Hgb Hct MCV MCH MCHC RDW Plt Count MPV Neut % (Auto) Lymph % (Auto) [place] % (Auto) Eos % (Auto) Baso % (Auto) Absolute Neuts (auto) Absolute Lymphs (auto) Absolute Monos (auto) Absolute Eos (auto) Absolute Basos (auto) Absolute Nucleated RBC Nucleated RBC % Sodium 137 Potassium 4.0 Chloride 106 Carbon Dioxide 26 Anion Gap 5 BUN 20 Creatinine 0.92 Est GFR ( Amer) 78.8 Est GFR (Non-Af Amer) 61.3 BUN/Creatinine Ratio 21.7 H Glucose 96 Calcium 10.0 Total Bilirubin 0.50 AST 18 ALT 14 Alkaline Phosphatase 76 Total Protein 7.7 Albumin 4.5 Globulin 3.2 Albumin/Globulin Ratio 1.4 TSH 0.14 L Urine Color Yellow Urine Appearance Cloudy Urine pH 5.0 Ur Specific [place] 1.023 Urine Protein Negative Urine Ketones Negative Urine Blood Negative Urine Nitrate Negative Urine Bilirubin Negative Urine Urobilinogen Negative Ur Leukocyte Esterase Negative Urine Glucose Negative Salicylates < 2.50 Urine Opiates Screen None detected Acetaminophen < 15 Ur Barbiturates Screen None detected Ur Phencyclidine Scrn None detected Ur Amphetamines Screen None detected U Benzodiazepines Scrn None detected Urine Cocaine Screen None detected U Cannabinoids Screen None detected Serum Alcohol < 10 02/15/17 10:58 WBC 5.4 RBC 4.82 Hgb 14.5 Hct 44 MCV 92 MCH 30 MCHC 33 RDW 12 Plt Count 218 MPV 9 Neut % (Auto) 61.4 Lymph % (Auto) 27.9 [place] % (Auto) 8.2 Eos % (Auto) 1.6 Baso % (Auto) 0.9 Absolute Neuts (auto) 3.3 Absolute Lymphs (auto) 1.5 Absolute Monos (auto) 0.4 Absolute Eos (auto) 0.1 Absolute Basos (auto) 0 Absolute Nucleated RBC 0.01 Nucleated RBC % 0.3 Sodium Potassium Chloride Carbon Dioxide Anion Gap BUN Creatinine Est GFR ( Amer) Est GFR (Non-Af Amer) BUN/Creatinine Ratio Glucose Calcium Total Bilirubin AST ALT Alkaline Phosphatase Total Protein Albumin Globulin Albumin/Globulin Ratio TSH Urine Color Urine Appearance Urine pH Ur Specific [place] Urine Protein Urine Ketones Urine Blood Urine Nitrate Urine Bilirubin Urine Urobilinogen Ur Leukocyte Esterase Urine Glucose Salicylates Urine Opiates Screen Acetaminophen Ur Barbiturates Screen Ur Phencyclidine Scrn Ur Amphetamines Screen U Benzodiazepines Scrn Urine Cocaine Screen U Cannabinoids Screen Serum Alcohol
--- NOTE | 2016-09-22 11:52 | ED ---
Benjamin Cheatham Matthew, scribed for Danny Lamb MD on 09/22/16 at 0939 . Progress - Progress Note Progress Note: The patient is a sign out from Jignesh Robertson. The patient will be involuntarily transferred to [facility] for further mental health management. Involuntarily transfer paperwork was signed. The patient is stable and will be transferred to [facility]. - Consult/PCP Time Called: 11:55 Course/Dx - Diagnoses Provider Diagnoses: Persistent mood [affective] disorder, unspecified The documentation as recorded by the Benjamin grady Matthew accurately reflects the service I personally performed and the decisions made by Zainab gates Drew, MD.
[2016-09-22] MEDS: Topiramate TAB(*) 25 MG PO SCH (22:36)
[2016-09-22] MEDS: Mirtazapine TAB* 15 MG PO SCH (22:36)
[2016-09-23] MEDS ORDERED: Levothyroxine TAB* 112 MCG TAB PO SCH (06:00)
[2016-09-23] MEDS: PARoxetine HCL TAB* 10 MG PO SCH (12:27)
[2016-09-23] MEDS: lamoTRIgine TAB(*) 100 MG PO SCH (12:27)
--- NOTE | 2016-09-23 16:28 | PN ---
ED Flex Patient Progress Note Subjective: This is a 65 year-old F who is pending admission to [facility]. Pt offers no complaints at this time. Objective: Vitals: Most recent vital signs documented below. General NAD, Alert and oriented x3. Heart: rrr Lungs: CTA or with rales, rhonchi, wheezing Laboratory: Current laboratory results documented below. Plan: Pending psychiatric admit to [facility]. Will continue to observe until admission. Patient is stable at this time Vital Signs Temp Pulse Resp BP Pulse Ox 98.2 F 64 16 118/59 96 09/23/16 07:41 09/23/16 07:41 09/23/16 07:41 09/23/16 07:41 09/23/16 07:41 Lab Results - Entire Visit 09/21/16 09/21/16 09/21/16 10:58 10:58 10:58 WBC RBC Hgb Hct MCV MCH MCHC RDW Plt Count MPV Neut % (Auto) Lymph % (Auto) [place] % (Auto) Eos % (Auto) Baso % (Auto) Absolute Neuts (auto) Absolute Lymphs (auto) Absolute Monos (auto) Absolute Eos (auto) Absolute Basos (auto) Absolute Nucleated RBC Nucleated RBC % Sodium 137 Potassium 4.0 Chloride 106 Carbon Dioxide 26 Anion Gap 5 BUN 20 Creatinine 0.92 Est GFR ( Amer) 78.8 Est GFR (Non-Af Amer) 61.3 BUN/Creatinine Ratio 21.7 H Glucose 96 Calcium 10.0 Total Bilirubin 0.50 AST 18 ALT 14 Alkaline Phosphatase 76 Total Protein 7.7 Albumin 4.5 Globulin 3.2 Albumin/Globulin Ratio 1.4 TSH 0.14 L Urine Color Urine Appearance Urine pH Ur Specific [place] Urine Protein Urine Ketones Urine Blood Urine Nitrate Urine Bilirubin Urine Urobilinogen Ur Leukocyte Esterase Urine Glucose Salicylates < 2.50 Urine Opiates Screen None detected Acetaminophen < 15 Ur Barbiturates Screen None detected Lamotrigine 7.7 Ur Phencyclidine Scrn None detected Ur Amphetamines Screen None detected U Benzodiazepines Scrn None detected Urine Cocaine Screen None detected U Cannabinoids Screen None detected Serum Alcohol < 10 09/21/16 09/21/16 10:58 10:58 WBC 5.4 RBC 4.82 Hgb 14.5 Hct 44 MCV 92 MCH 30 MCHC 33 RDW 12 Plt Count 218 MPV 9 Neut % (Auto) 61.4 Lymph % (Auto) 27.9 [place] % (Auto) 8.2 Eos % (Auto) 1.6 Baso % (Auto) 0.9 Absolute Neuts (auto) 3.3 Absolute Lymphs (auto) 1.5 Absolute Monos (auto) 0.4 Absolute Eos (auto) 0.1 Absolute Basos (auto) 0 Absolute Nucleated RBC 0.01 Nucleated RBC % 0.3 Sodium Potassium Chloride Carbon Dioxide Anion Gap BUN Creatinine Est GFR ( Amer) Est GFR (Non-Af Amer) BUN/Creatinine Ratio Glucose Calcium Total Bilirubin AST ALT Alkaline Phosphatase Total Protein Albumin Globulin Albumin/Globulin Ratio TSH Urine Color Yellow Urine Appearance Cloudy Urine pH 5.0 Ur Specific [place] 1.023 Urine Protein Negative Urine Ketones Negative Urine Blood Negative Urine Nitrate Negative Urine Bilirubin Negative Urine Urobilinogen Negative Ur Leukocyte Esterase Negative Urine Glucose Negative Salicylates Urine Opiates Screen Acetaminophen Ur Barbiturates Screen Lamotrigine Ur Phencyclidine Scrn Ur Amphetamines Screen U Benzodiazepines Scrn Urine Cocaine Screen U Cannabinoids Screen Serum Alcohol
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
[2016-09-23] MEDS: Mirtazapine TAB* 15 MG PO SCH (22:12)
[2016-09-23] MEDS: Docusate CAP* 100 MG PO SCH (22:12)
[2016-09-23] MEDS: Psyllium PAK PO PRN (22:13)
[2016-09-23] MEDS: Topiramate TAB(*) 25 MG PO SCH (22:13)
[2016-09-23] MEDS: Heparin VIAL(*) 5000 UNITS/ML VIAL (FIVE THOUSAND) SUBCUT SCH (22:13)
[2016-09-24] MEDS: Levothyroxine TAB* 88 MCG TAB PO SCH (06:06)
[2016-09-24] MEDS: Docusate CAP* 100 MG PO SCH ×2 (09:09→20:04)
[2016-09-24] MEDS: Lisinopril TAB* 5 MG PO SCH (09:10)
[2016-09-24] MEDS: lamoTRIgine TAB(*) 100 MG PO SCH (09:10)
[2016-09-24] MEDS: Folic Acid TAB* 1 MG PO SCH (09:10)
[2016-09-24] MEDS: PARoxetine HCL TAB* 10 MG PO SCH (09:10)
[2016-09-24] MEDS: Vitamin THERAPEUTIC TAB PO SCH (09:10)
[2016-09-24] MEDS: Heparin VIAL(*) 5000 UNITS/ML VIAL (FIVE THOUSAND) SUBCUT SCH ×2 (09:11→20:05)
[2016-09-24] MEDS: Psyllium PAK PO PRN (16:19)
[2016-09-24] MEDS: Mirtazapine TAB* 15 MG PO SCH (20:04)
[2016-09-24] MEDS: Topiramate TAB(*) 25 MG PO SCH (20:04)
[2016-09-25] MEDS: Levothyroxine TAB* 88 MCG TAB PO SCH (05:52)
[2016-09-25] MEDS: Lisinopril TAB* 5 MG PO SCH (08:31)
[2016-09-25] MEDS: lamoTRIgine TAB(*) 100 MG PO SCH (08:39)
[2016-09-25] MEDS: Folic Acid TAB* 1 MG PO SCH (08:39)
[2016-09-25] MEDS: Docusate CAP* 100 MG PO SCH ×2 (08:39→21:28)
[2016-09-25] MEDS: PARoxetine HCL TAB* 10 MG PO SCH (08:39)
[2016-09-25] MEDS: Vitamin THERAPEUTIC TAB PO SCH (08:39)
[2016-09-25] MEDS: Heparin VIAL(*) 5000 UNITS/ML VIAL (FIVE THOUSAND) SUBCUT SCH ×2 (08:42→19:57)
[2016-09-25] MEDS: Topiramate TAB(*) 25 MG PO SCH (21:28)
[2016-09-25] MEDS: Mirtazapine TAB* 15 MG PO SCH (21:28)
[2016-09-26] MEDS: Levothyroxine TAB* 88 MCG TAB PO SCH (07:00)
[2016-09-26] MEDS: Docusate CAP* 100 MG PO SCH ×2 (07:53→21:09)
[2016-09-26] MEDS: Lisinopril TAB* 5 MG PO SCH (07:53)
[2016-09-26] MEDS: PARoxetine HCL TAB* 10 MG PO SCH (07:53)
[2016-09-26] MEDS: Vitamin THERAPEUTIC TAB PO SCH (07:53)
[2016-09-26] MEDS: lamoTRIgine TAB(*) 100 MG PO SCH (07:53)
[2016-09-26] MEDS: Folic Acid TAB* 1 MG PO SCH (07:53)
[2016-09-26] MEDS: Heparin VIAL(*) 5000 UNITS/ML VIAL (FIVE THOUSAND) SUBCUT SCH ×2 (07:54→21:09)
[2016-09-26] MEDS: Psyllium PAK PO PRN (07:58)
[2016-09-26] MEDS: Mirtazapine TAB* 15 MG PO SCH (21:09)
[2016-09-26] MEDS: Topiramate TAB(*) 25 MG PO SCH (21:09)
[2016-09-27] MEDS: Levothyroxine TAB* 88 MCG TAB PO SCH (06:16)
[2016-09-27] MEDS: Ibuprofen TAB* 600 MG PO PRN (06:16)
[2016-09-27] MEDS: Docusate CAP* 100 MG PO SCH ×2 (08:05→21:09)
[2016-09-27] MEDS: Folic Acid TAB* 1 MG PO SCH (08:06)
[2016-09-27] MEDS: lamoTRIgine TAB(*) 100 MG PO SCH (08:06)
[2016-09-27] MEDS: Vitamin THERAPEUTIC TAB PO SCH (08:07)
[2016-09-27] MEDS: PARoxetine HCL TAB* 10 MG PO SCH (08:07)
[2016-09-27] MEDS: Lisinopril TAB* 5 MG PO SCH (08:07)
[2016-09-27] MEDS: Heparin VIAL(*) 5000 UNITS/ML VIAL (FIVE THOUSAND) SUBCUT SCH ×2 (08:08→21:11)
[2016-09-27] MEDS: Psyllium PAK PO PRN (08:13)
[2016-09-27] MEDS: Mirtazapine TAB* 15 MG PO SCH (21:10)
[2016-09-27] MEDS: Topiramate TAB(*) 25 MG PO SCH (21:11)
[2016-09-28] MEDS: Levothyroxine TAB* 88 MCG TAB PO SCH (06:26)
[2016-09-28] MEDS: Ibuprofen TAB* 600 MG PO PRN (06:30)
[2016-09-28] MEDS: Folic Acid TAB* 1 MG PO SCH (09:00)
[2016-09-28] MEDS: PARoxetine HCL TAB* 10 MG PO SCH (09:00)
[2016-09-28] MEDS: Docusate CAP* 100 MG PO SCH ×2 (09:00→21:30)
[2016-09-28] MEDS: lamoTRIgine TAB(*) 100 MG PO SCH (09:00)
[2016-09-28] MEDS: Lisinopril TAB* 5 MG PO SCH (09:00)
[2016-09-28] MEDS: Heparin VIAL(*) 5000 UNITS/ML VIAL (FIVE THOUSAND) SUBCUT SCH ×2 (09:01→21:30)
[2016-09-28] MEDS: Vitamin THERAPEUTIC TAB PO SCH (09:01)
[2016-09-28] MEDS: Psyllium PAK PO PRN (13:11)
[2016-09-28] MEDS: Mirtazapine TAB* 15 MG PO SCH (21:29)
[2016-09-28] MEDS: Topiramate TAB(*) 25 MG PO SCH (21:30)
[2016-09-29] MEDS: Levothyroxine TAB* 88 MCG TAB PO SCH (06:24)
[2016-09-29] MEDS: Heparin VIAL(*) 5000 UNITS/ML VIAL (FIVE THOUSAND) SUBCUT SCH ×2 (07:23→20:42)
[2016-09-29] MEDS: Folic Acid TAB* 1 MG PO SCH (07:47)
[2016-09-29] MEDS: lamoTRIgine TAB(*) 100 MG PO SCH (07:48)
[2016-09-29] MEDS: Vitamin THERAPEUTIC TAB PO SCH (07:48)
[2016-09-29] MEDS: PARoxetine HCL TAB* 10 MG PO SCH (07:48)
[2016-09-29] MEDS: Docusate CAP* 100 MG PO SCH ×2 (07:48→20:43)
[2016-09-29] MEDS: Lisinopril TAB* 5 MG PO SCH (07:48)
[2016-09-29] MEDS: Psyllium PAK PO PRN (10:04)
[2016-09-29] MEDS: Mirtazapine TAB* 15 MG PO SCH (20:43)
[2016-09-29] MEDS: Topiramate TAB(*) 25 MG PO SCH (20:43)
[2016-09-30] MEDS: Levothyroxine TAB* 88 MCG TAB PO SCH (06:08)
[2016-09-30] MEDS: Heparin VIAL(*) 5000 UNITS/ML VIAL (FIVE THOUSAND) SUBCUT SCH ×2 (07:13→21:27)
[2016-09-30] MEDS: Docusate CAP* 100 MG PO SCH ×2 (07:17→21:34)
[2016-09-30] MEDS: Lisinopril TAB* 5 MG PO SCH (07:17)
[2016-09-30] MEDS: lamoTRIgine TAB(*) 100 MG PO SCH (07:17)
[2016-09-30] MEDS: Folic Acid TAB* 1 MG PO SCH (07:17)
[2016-09-30] MEDS: PARoxetine HCL TAB* 10 MG PO SCH (07:17)
[2016-09-30] MEDS: Psyllium PAK PO PRN (07:18)
[2016-09-30] MEDS: Vitamin THERAPEUTIC TAB PO SCH (07:18)
[2016-09-30] MEDS ORDERED: PPD test dose* 5 TU/0.1 ML TEST (*USE PPD ORDER SET*) INTRADERM SCH (11:00)
--- NOTE | 2016-09-30 11:16 | RAD ---
HISTORY: Cough COMPARISONS: September 10, 2014 VIEWS: 2: Frontal dual-energy and lateral views of the chest. FINDINGS: CARDIOMEDIASTINAL SILHOUETTE: The cardiomediastinal silhouette is normal. BAUTISTA: The bautista are normal. PLEURA: The costophrenic angles are sharp. No pleural abnormalities are noted. LUNG PARENCHYMA: There is hyperinflation with flattening of the diaphragm and expansion of the AP diameter of the chest. ABDOMEN: The upper abdomen is clear. There is no subphrenic gas. BONES AND SOFT TISSUES: There is a chronic appearing rib fracture of the left fifth rib anteriorly OTHER: None. IMPRESSION: HYPERINFLATION, CONSISTENT WITH COPD. NO ACTIVE CARDIOPULMONARY DISEASE.
[2016-09-30] MEDS: Mirtazapine TAB* 15 MG PO SCH (21:34)
[2016-09-30] MEDS: Topiramate TAB(*) 25 MG PO SCH (21:34)
[2016-10-01] MEDS: Levothyroxine TAB* 88 MCG TAB PO SCH (05:59)
[2016-10-01] MEDS: Folic Acid TAB* 1 MG PO SCH (08:42)
[2016-10-01] MEDS: lamoTRIgine TAB(*) 100 MG PO SCH (08:42)
[2016-10-01] MEDS: Vitamin THERAPEUTIC TAB PO SCH (08:42)
[2016-10-01] MEDS: Lisinopril TAB* 5 MG PO SCH (08:42)
[2016-10-01] MEDS: Docusate CAP* 100 MG PO SCH ×2 (08:43→21:04)
[2016-10-01] MEDS: PARoxetine HCL TAB* 10 MG PO SCH (08:43)
[2016-10-01] MEDS: Heparin VIAL(*) 5000 UNITS/ML VIAL (FIVE THOUSAND) SUBCUT SCH ×2 (08:43→21:04)
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
[2016-10-01] MEDS: Mirtazapine TAB* 15 MG PO SCH (21:04)
[2016-10-01] MEDS: Topiramate TAB(*) 25 MG PO SCH (21:05)
[2016-10-02] MEDS: Levothyroxine TAB* 88 MCG TAB PO SCH (05:11)
[2016-10-02] MEDS: Heparin VIAL(*) 5000 UNITS/ML VIAL (FIVE THOUSAND) SUBCUT SCH ×2 (07:16→21:24)
[2016-10-02] MEDS: Lisinopril TAB* 5 MG PO SCH (07:27)
[2016-10-02] MEDS: Folic Acid TAB* 1 MG PO SCH (07:27)
[2016-10-02] MEDS: Vitamin THERAPEUTIC TAB PO SCH (07:28)
[2016-10-02] MEDS: Docusate CAP* 100 MG PO SCH ×2 (07:28→21:24)
[2016-10-02] MEDS: PARoxetine HCL TAB* 10 MG PO SCH (07:28)
[2016-10-02] MEDS: lamoTRIgine TAB(*) 100 MG PO SCH (07:28)
[2016-10-02] MEDS: Psyllium PAK PO PRN (07:29)
[2016-10-02] MEDS ORDERED: PPD Reading NOTE* (*USE PPD ORDER SET*) ONE (12:00)
[2016-10-02] MEDS: Mirtazapine TAB* 15 MG PO SCH (21:23)
[2016-10-02] MEDS: Topiramate TAB(*) 25 MG PO SCH (21:24)
[2016-10-03] MEDS: Levothyroxine TAB* 88 MCG TAB PO SCH (05:46)
[2016-10-03] MEDS: Lisinopril TAB* 5 MG PO SCH (10:05)
[2016-10-03] MEDS: PARoxetine HCL TAB* 10 MG PO SCH (10:05)
[2016-10-03] MEDS: Vitamin THERAPEUTIC TAB PO SCH (10:05)
[2016-10-03] MEDS: Folic Acid TAB* 1 MG PO SCH (10:05)
[2016-10-03] MEDS: Docusate CAP* 100 MG PO SCH ×2 (10:06→21:10)
[2016-10-03] MEDS: lamoTRIgine TAB(*) 100 MG PO SCH (10:06)
[2016-10-03] MEDS: Heparin VIAL(*) 5000 UNITS/ML VIAL (FIVE THOUSAND) SUBCUT SCH ×2 (10:09→21:08)
[2016-10-03] MEDS: Psyllium PAK PO PRN (10:32)
[2016-10-03] MEDS: Mirtazapine TAB* 15 MG PO SCH (21:10)
[2016-10-03] MEDS: Topiramate TAB(*) 25 MG PO SCH (21:10)
[2016-10-04] MEDS: Levothyroxine TAB* 88 MCG TAB PO SCH (05:50)
[2016-10-04] MEDS: Vitamin THERAPEUTIC TAB PO SCH (10:27)
[2016-10-04] MEDS: PARoxetine HCL TAB* 10 MG PO SCH (10:27)
[2016-10-04] MEDS: Lisinopril TAB* 5 MG PO SCH (10:27)
[2016-10-04] MEDS: Docusate CAP* 100 MG PO SCH ×2 (10:27→20:25)
[2016-10-04] MEDS: Folic Acid TAB* 1 MG PO SCH (10:27)
[2016-10-04] MEDS: lamoTRIgine TAB(*) 100 MG PO SCH (10:27)
[2016-10-04] MEDS: Heparin VIAL(*) 5000 UNITS/ML VIAL (FIVE THOUSAND) SUBCUT SCH ×2 (10:28→20:25)
[2016-10-04] MEDS: Psyllium PAK PO PRN (14:10)
[2016-10-04] MEDS: Mirtazapine TAB* 15 MG PO SCH (20:25)
[2016-10-04] MEDS: Topiramate TAB(*) 25 MG PO SCH (20:26)
[2016-10-05] MEDS: Levothyroxine TAB* 88 MCG TAB PO SCH (06:02)
[2016-10-05] MEDS: Heparin VIAL(*) 5000 UNITS/ML VIAL (FIVE THOUSAND) SUBCUT SCH ×2 (08:21→21:34)
[2016-10-05] MEDS: Lisinopril TAB* 5 MG PO SCH (08:23)
[2016-10-05] MEDS: PARoxetine HCL TAB* 10 MG PO SCH (08:23)
[2016-10-05] MEDS: Docusate CAP* 100 MG PO SCH ×2 (08:23→21:34)
[2016-10-05] MEDS: Vitamin THERAPEUTIC TAB PO SCH (08:23)
[2016-10-05] MEDS: Folic Acid TAB* 1 MG PO SCH (08:24)
[2016-10-05] MEDS: lamoTRIgine TAB(*) 100 MG PO SCH (08:24)
[2016-10-05] MEDS: Psyllium PAK PO PRN (12:52)
[2016-10-05 14:18] VITALS: BP 130/60
[2016-10-05] MEDS: Mirtazapine TAB* 15 MG PO SCH (21:34)
[2016-10-05] MEDS: Topiramate TAB(*) 25 MG PO SCH (21:34)
[2016-10-06] MEDS: Levothyroxine TAB* 88 MCG TAB PO SCH (06:12)
[2016-10-06] MEDS: Ibuprofen TAB* 600 MG PO PRN (06:15)
[2016-10-06] MEDS: Folic Acid TAB* 1 MG PO SCH (08:08)
[2016-10-06] MEDS: Docusate CAP* 100 MG PO SCH (08:08)
[2016-10-06] MEDS: Heparin VIAL(*) 5000 UNITS/ML VIAL (FIVE THOUSAND) SUBCUT SCH (08:09)
[2016-10-06] MEDS: lamoTRIgine TAB(*) 100 MG PO SCH (08:09)
[2016-10-06] MEDS: Lisinopril TAB* 5 MG PO SCH (08:09)
[2016-10-06] MEDS: PARoxetine HCL TAB* 10 MG PO SCH (08:09)
[2016-10-06] MEDS: Vitamin THERAPEUTIC TAB PO SCH (08:10)
--- NOTE | 2016-10-06 09:30 | PN ---
Subjective Date of Service: 10/06/16 Interval History: Pt is feeling well. Excited to go to her new home. No pain or SOB. Objective Active Medications: Docusate Sodium (Colace Cap*) 100 mg PO BID [facility] Last Admin: 10/06/16 08:08 Dose: 100 mg Folic Acid (Folvite Tab*) 1 mg PO DAILY [facility] Last Admin: 10/06/16 08:08 Dose: 1 mg Heparin Sodium (Porcine) (Heparin Vial(*)) 5,000 units SUBCUT Q12HR [facility] Last Admin: 10/06/16 08:09 Dose: Not Given Ibuprofen (Motrin Tab*) 600 mg PO Q6H PRN PRN Reason: FEVER/PAIN Last Admin: 10/06/16 06:15 Dose: 600 mg Lamotrigine (Lamictal Tab(*)) 100 mg PO DAILY [facility] Last Admin: 10/06/16 08:09 Dose: 100 mg Levothyroxine Sodium (Synthroid Tab*) 88 mcg PO DAILY@0600 [facility] Last Admin: 10/06/16 06:12 Dose: 88 mcg Lisinopril (Prinivil Tab*) 5 mg PO DAILY [facility] Last Admin: 10/06/16 08:09 Dose: 5 mg Mirtazapine (Remeron Tab*) 15 mg PO BEDTIME [facility] Last Admin: 10/05/16 21:34 Dose: 15 mg Multivitamins (Theragran Tab*) 1 tab PO DAILY [facility] Last Admin: 10/06/16 08:10 Dose: 1 tab Paroxetine HCl (Paxil Tab*) 10 mg PO DAILY [facility] Last Admin: 10/06/16 08:09 Dose: 10 mg Psyllium Hydrophilic Mucilloid (Metamucil Porter*) 1 pkt PO DAILY PRN PRN Reason: CONSTIPATION Last Admin: 10/05/16 12:52 Dose: 1 pkt Topiramate (Topamax(*)) 25 mg PO BEDTIME [facility] Last Admin: 10/05/16 21:34 Dose: 25 mg Vital Signs 10/05/16 10/05/16 14:17 20:00 Temperature 97.3 F Pulse Rate 80 Respiratory 15 16 Rate Blood Pressure 130/60 (mmHg) O2 Sat by Pulse 97 Oximetry Oxygen Devices in Use Now: None Appearance: Middle aged female sitting on the edge of the bed coloring, NAD Eyes: No Scleral Icterus Ears/Nose/Mouth/Throat: Mucous Membranes Moist Respiratory: Symmetrical Chest Expansion and Respiratory Effort, Clear to Auscultation Cardiovascular: NL Sounds; No Murmurs; No JVD, RRR, No Edema Abdominal: NL Sounds; No Tenderness; No Distention Extremities: No Clubbing, Cyanosis Skin: No Rash or Ulcers, No Nodules or Sclerosis Neurological: Alert and Oriented x 3 Result Diagrams: 09/21/16 10:58 09/21/16 10:58 Assess/Plan/Problems-Billing Ms. Trammell is 65yo F with PMHx of HTN, hypothyroidism, possible seizure disorder , possible bipolar disorder, h/o threatening behavior who presented to ED on for MHU evaluation due to threatening behavior to people on her prior place of living ([facility]). Admitted as mcfp care. - Patient Problems (1) Homelessness Current Visit: Yes Status: Acute Code(s): Z59.0 - HOMELESSNESS SNOMED Code (s): 77810181 Comment: Plan to d/c to [facility] today. (2) Hypothyroidism Current Visit: Yes Status: Acute Code(s): E03.9 - HYPOTHYROIDISM, UNSPECIFIED SNOMED Code(s): 37127832 Comment: Continue current dose of synthroid. Recheck TSH in about 2 weeks. (3) Bipolar disorder Current Visit: Yes Status: Acute Comment: Continue Paroxetine, Mirtazapine, Topiramate, and Lamotrigine. (4) HTN (hypertension) Current Visit: Yes Status: Acute Code(s): I10 - ESSENTIAL (PRIMARY) HYPERTENSION SNOMED Code(s): 39099215 Comment: BP is under good control- continue lisinopril. (5) DVT prophylaxis Current Visit: Yes Status: Acute Code(s): JIN6636 - SNOMED Code(s): 742180524 Comment: SQ heparin. (6) Full code status Current Visit: Yes Status: Acute Code(s): Z78.9 - OTHER SPECIFIED HEALTH STATUS SNOMED Code(s): 631265358 Status and Disposition: d/c to [facility]
--- NOTE | 2016-10-07 11:40 | DS ---
DISCHARGE SUMMARY: DATE OF ADMISSION: 09/23/16 DATE OF DISCHARGE: 10/06/16 PRIMARY CARE PHYSICIAN: Estefani Diop NP. PRINCIPAL DIAGNOSIS: Homelessness. SECONDARY DIAGNOSES: 1. Agitated and threatening behavior. 2. Hypertension. 3. Hypothyroidism. 4. Questionable seizure disorder. 5. Possible bipolar disorder. DISCHARGE MEDICATIONS: 1. Ibuprofen 600 mg p.o. q. 6 hours p.r.n. pain. 2. Lamotrigine 100 mg p.o. daily. 3. Multivitamin one tab p.o. daily. 4. Topamax 25 mg p.o. q.h.s. 5. Psyllium one packet p.o. daily p.r.n. constipation. 6. Paxil 10 mg p.o. daily. 7. Remeron 15 mg p.o. q.h.s. 8. Lisinopril 5 mg p.o. daily. 9. Folic acid 1 mg p.o. daily. 10. Colace 100 mg p.o. b.i.d. 11. Calcium plus D one tablet p.o. b.i.d. 12. Synthroid 88 mcg p.o. daily (reduced dose). HOSPITAL COURSE: Ms. Trammell is a 65-year-old female who was sent to the emergency room from the [facility] for threatening and agitated behavior. The patient stated that she did not want to go back to the [facility]. The patient was essentially homeless. She was admitted to [facility] care on . Social Work worked very closely with the patient and ultimately got a bed for her at the [facility]. The patient is excited to be discharged to the [facility] and is being discharged there today, 10/06/16. The patient will need a followup TSH on 10/24/16 as her Synthroid dose was decreased due to a low TSH level on admission. She otherwise will need to follow up with Dr. Haylee Fish on 11/07/16 at 9 a.m. ACTIVITY LEVEL: As tolerated. DIET: Regular. CONDITION ON DISCHARGE: Stable. TIME SPENT: 35 minutes were spent discharging the patient. CC: Estefani Diop NP; [place]* [id number]/[facility] #: [id number] [facility]
--- NOTE | 2016-10-21 08:31 | ED ---
Mark Cheatham Adam, scribed for Danny Lamb MD on 09/23/16 at 1303 . Progress - Progress Note Progress Note: 12:50 - channel worker requests call to hospitalist for admission of patient. Course/Dx - Diagnoses Provider Diagnoses: Persistent mood [affective] disorder, unspecified The documentation as recorded by the scribeMark Adam accurately reflects the service I personally performed and the decisions made by , Danny Lamb MD.
== END 2016-10-06 10:00 | DRG 885 ==
LOC: ED 10:30 → MED 09-23 13:02
PROVIDERS: ADMIT Hospitalist; ATTEND Hospitalist
DX: F31.9 Bipolar disorder, unspecified (principal); G40.909 Epilepsy, unspecified, not intractable, without status epilepticus; I10 Essential (primary) hypertension; Z59.0 Homelessness; E03.9 Hypothyroidism, unspecified; Z75.1 Person awaiting admission to adequate facility elsewhere; Z28.21 Immunization not carried out because of patient refusal
CPT/HCPCS: 36415; 71020; 80053; 80175; 80307; 80320; 80329; 81003; 84443; 85025; 93005; 99282; A9270-GY; G0480; J1644

== ENCOUNTER → 2017-04-04 22:52 | Emergency (ER) | payer MEDICARE ==
[~2017-04-04 22:52] MED LIST: Levothyroxine TAB* 88 MCG TAB PO ONE
[2017-04-04 23:28] LABS: Urine Bacteria Absent (Absent); Urine Bilirubin Negative (Negative); Urine Glucose Negative (Negative); Urine Nitrite Negative (Negative)
[2017-04-04 23:45] LABS: Benzodiazepine Urine Screen None Detected (None Detect)
[2017-04-04 23:48] LABS: Hematocrit 39 % (35-47); Hemoglobin 13.2 g/dl (12.0-16.0); Mean Corpuscular HGB Conc 34 g/dl (31-36); Mean Corpuscular Hemoglobin 31 pg (27-31); Mean Corpuscular Volume 90 fL (80-97); Mean Platelet Volume 8 um3 (7.4-10.4); Red Blood Count 4.27 10^6/ul (4.0-5.4); Red Cell Distribution Width 12 % (10.5-15); White Blood Count 6.4 10^3/ul (3.5-10.8)
[2017-04-05 00:04] LABS: ALT 10 U/L (7-52); AST 13 U/L (13-39); Albumin 4.5 g/dL (3.2-5.2); Alkaline Phosphatase 67 U/L (34-104); Anion Gap 7 mmol/L (2-11); BUN/Creatinine Ratio 19.6 (8-20); Blood Urea Nitrogen 21 mg/dL (6-24); CO2 Carbon Dioxide 25 mmol/L (22-32); Calcium 10.2 mg/dL (8.6-10.3); Chloride 105 mmol/L (101-111); EGFR Non-African American 51.3 (>60); Glucose 101 mg/dL (70-100); Potassium 3.5 mmol/L (3.5-5.0); Sodium 137 mmol/L (133-145); Total Protein 7.5 g/dL (6.4-8.9)
[2017-04-05 00:09] LABS: Acetaminophen < 15 mcg/mL; Alcohol < 10 mg/dL (<10); Salicylate < 2.50 mg/dL (<30)
[2017-04-05 00:20] LABS: TSH (Thyroid Stimulating Horm) 2.78 mcIU/mL (0.34-5.60)
[2017-04-05 00:54] VITALS: BP 169/87
--- NOTE | 2017-04-05 06:52 | ED ---
Keke Cheatham Thomas, scribed for Jaspreet Olson on 04/04/17 at 2322 . Psychiatric Complaint - HPI Summary HPI Summary: The patient is a 66 y/o F presenting to the ED in need of a MHE. She denies SI, HI, and auditory hallucinations at this time. She denies any medical complaints or pain. She denies any recent smoking, alcohol, or drugs. PMHx: bipolar disorder. - History Of Current Complaint Chief Complaint: EDMentalHealth Time Seen by Provider: 04/04/17 23:03 Hx Obtained From: Patient Onset/Duration: Still Present Aggravating Factor(s): Recent Stress Alleviating Factor(s): Nothing Associated Signs And Symptoms: Negative: Hallucinating Related History: Positive For: Prior Psychiatric Issues Has Suicidal: Denies: Thoughts Has Homicidal: Denies: Thoughts - Allergies/Home Medications Allergies/Adverse Reactions: Allergies Allergy/AdvReac Type Severity Reaction Status Date / Time Haloperidol [From Haldol] AdvReac Intermediate Altered Verified 04/04/17 23:35 Mental Status Home Medications: Home Medications Thiamine TAB* [Vitamin B-1 TAB*] 100 mg PO DAILY 04/04/17 [History Confirmed ] Topiramate TAB(*) [Topamax 25 MG tab] 50 mg PO DAILY 04/04/17 [History Confirmed 04/04/17] Topiramate TAB(*) [Topamax 25 MG tab] 75 mg PO BEDTIME 04/04/17 [History Confirmed 04/04/17] Trihexyphenidyl TAB* [Artane*] 1 mg PO BID 04/04/17 [History Confirmed 04/04/17] lamoTRIgine TAB(*) [LaMICtal TAB(*)] 50 mg PO DAILY 04/04/17 [History Confirmed 04/04/17] risperiDONE TAB* [RisperDAL*] 2 mg PO BEDTIME 04/04/17 [History Confirmed ] PMH/Surg Hx/FS Hx/Imm Hx Previously Healthy: No Endocrine/Hematology History: Reports: Hx Thyroid Disease Denies: Hx Diabetes Cardiovascular History: Denies: Hx Hypertension Respiratory History: Denies: Hx Asthma, Hx Chronic Obstructive Pulmonary Disease (COPD) GI History: Denies: Hx Ulcer Sensory History: Reports: Hx Contacts or Glasses Opthamlomology History: Reports: Hx Contacts or Glasses Psychiatric History: Reports: Hx Depression, Hx Bipolar Disorder, Hx of Violent Episodes Against Others Denies: Hx Eating Disorder - Cancer History Hx Chemotherapy: No Hx Radiation Therapy: No - Surgical History Surgery Procedure, Year, and Place: HYSTERECTOMY Infectious Disease History: No Infectious Disease History: Denies: Hx Hepatitis, Hx Human Immunodeficiency Virus (HIV), Traveled Outside the [place] in Last 30 Days - Family History Known Family History: Negative: Cardiac Disease, Diabetes - Social History Alcohol Use: None Hx Substance Use: No Substance Use Type: Reports: None Substance Use Comment - Amount & Last Used: states 40 years ago nothing recent Hx Tobacco Use: No Smoking Status (MU): Never Smoked Tobacco Review of Systems Negative: Fever Positive: Other - POS: in need of MHE; NEG: SI, HI, hearing voices All Other Systems Reviewed And Are Negative: Yes Physical Exam Triage Information Reviewed: Yes Vital Signs On Initial Exam: Initial Vitals Temp Pulse Resp BP Pulse Ox 97.6 F 74 16 148/82 96 04/04/17 23:00 04/04/17 23:00 04/04/17 23:00 04/04/17 23:00 04/04/17 23:00 Vital Signs Reviewed: Yes Appearance: Positive: Well-Appearing, No Pain Distress Skin: Positive: Warm, Skin Color Reflects Adequate Perfusion, Dry Head/Face: Positive: Normal Head/Face Inspection Eyes: Positive: EOMI, MILKA Neck: Positive: Supple, Nontender Respiratory/Lung Sounds: Positive: Clear to Auscultation, Breath Sounds Present Cardiovascular: Positive: RRR, Pulses are Symmetrical in both Upper and Lower Extremities Abdomen Description: Positive: Nontender, No Organomegaly Bowel Sounds: Positive: Present Musculoskeletal: Positive: Normal, Strength/ROM Intact Neurological: Positive: Normal, Sensory/Motor Intact, Alert, Oriented to Person Place, Time Psychiatric: Positive: Depressed Diagnostics - Vital Signs Vital Signs Temp Pulse Resp BP Pulse Ox 04/04/17 23:00 97.6 F 74 16 148/82 96 - Laboratory Result Diagrams: 04/04/17 23:27 04/04/17 23:27 Lab Statement: Any lab studies that have been ordered have been reviewed, and results considered in the medical decision making process. Course/Dx - Course Assessment/Plan: The patient came to the ED for a MHE. Bloodwork and UA were obtained. Urine toxicology is negative. She is cleared for MHE. She will be signed out from Dr. Olson to Dr. Lamb at shift change pending MHE. - Differential Dx/Clinical Impression Provider Diagnosis: Depression Discharge - Discharge Plan Condition: Stable Disposition: [facility] Discharge Disposition Comment: Signed out from Dr. Olson to Dr. Lamb at shift change, pending MHE. Referrals: Estefani Diop [Primary Care Provider] - The documentation as recorded by the Keke grady Thomas accurately reflects the service I personally performed and the decisions made by Whitney gates Emmanuel.
--- NOTE | 2017-04-05 18:44 | ED ---
Iraj Cheatham Angela, scribed for Danny Lamb MD on 04/05/17 at 0822 . Progress - Progress Note Progress Note: This pt is a 66 y/o female presenting to [facility] in need of MHE. PMHx: bipolar disorder. Pt denies SI, HI. This pt was signed out from Dr. Olson, pending disposition, awaiting MHE. Pt has been cleared by MHE. The pt will be discharged home in stable condition with a diagnosis of depression. Pt will continue her mental health needs in [facility] and will seek assistance of her social work professor to find alternate housing. Course/Dx - Diagnoses Provider Diagnoses: Depression The documentation as recorded by the Iraj grady Angela accurately reflects the service I personally performed and the decisions made by , Danny Lamb MD.
== END ==
LOC: ED 22:52
DX: F32.9 Major depressive disorder, single episode, unspecified (principal)
CPT/HCPCS: 36415; 80053; 80307; 80320; 80329; 81003; 81015; 84443; 85025; 87086; 99284; G0480